=== PATIENT | male | born 1950 | race Caucasian/White ===

== ENCOUNTER 2016-12-16 12:10 | Emergency (ER) | payer MEDICARE, BC ==
[2016-12-16 13:48] VITALS: BP 131/83
--- NOTE | 2016-12-16 14:30 | ED ---
Laceration/Wound HPI - HPI Summary HPI Summary: Patient presents to ED with a 4cm laceration to the dorsum of the right wrist. Denies numbness, tingling, color or temperature changes. Laceration is superficial with minimal blood loss. Laceration occurred by patient accidentally by a knife 2 hours ago. He attempted to use a bandaid and skin glue but states the wound continued to open and bleed. Knife was clean, tetanus UTD. He states he cleaned the wound well s/p injury. He denies blood thinners. Takes medications for HTN. Denies other health problems. - History of Current Complaint Stated Complaint: HAND LAC Time Seen by Provider: 12/16/16 12:29 Hx Obtained From: Patient Mechanism of Injury: Sharp/Blunt Trauma Onset/Duration: Sudden Onset Aggravating: Nothing Alleviating: Nothing Timing: Constant Onset Severity: Mild Current Severity: None Pain Intensity: 0 Pain Scale Used: 0-10 Numeric Associated Signs & Symptoms: Negative Related Hx: Dominant Hand (Right) - Allergy/Home Medications Allergies/Adverse Reactions: Allergies Allergy/AdvReac Type Severity Reaction Status Date / Time No Known Allergies Allergy Verified 08/29/12 00:50 PMH/Surg Hx/FS Hx/Imm Hx Previously Healthy: Yes Endocrine/Hematology History: Reports: Hx Diabetes Cardiovascular History: Reports: Hx Hypertension - Immunization History Hx Pertussis Vaccination: No Immunizations Up to Date: Unable to Obtain/Confirm Infectious Disease History: No Infectious Disease History: Denies: Traveled Outside the [place] in Last 30 Days - Social History Occupation: Unemployed Lives: With Family Alcohol Use: Occasionally Hx Substance Use: No Substance Use Type: Reports: None Hx Tobacco Use: Yes Smoking Status (MU): Light Every Day Tobacco Smoker Review of Systems Constitutional: Negative Eyes: Negative Respiratory: Negative Gastrointestinal: Negative Positive: no symptoms reported, see HPI Musculoskeletal: Negative Positive: Other - 4cm laceration to dorsum of the right wrist Neurological: Negative Psychological: Normal All Other Systems Reviewed And Are Negative: Yes Physical Exam Triage Information Reviewed: Yes Vital Signs On Initial Exam: Initial Vitals Temp Pulse Resp BP Pulse Ox 98.4 F 73 20 133/99 94 12/16/16 12:11 12/16/16 12:11 12/16/16 12:11 12/16/16 12:11 12/16/16 12:11 Vital Signs Reviewed: Yes Appearance: Positive: Well-Appearing, No Pain Distress, Well-Nourished Skin: Positive: Warm, Skin Color Reflects Adequate Perfusion, Other - 4cm laceration to the dorsum of the right wrist Eyes: Positive: Normal, LATRICE, Conjunctiva Clear Neck: Positive: Supple, Nontender, No Lymphadenopathy Respiratory/Lung Sounds: Positive: Clear to Auscultation, Breath Sounds Present Cardiovascular: Positive: Normal, RRR, Pulses are Symmetrical in both Upper and Lower Extremities Musculoskeletal: Positive: Normal, Strength/ROM Intact Neurological: Positive: Sensory/Motor Intact, Alert, Oriented to Person Place, Time Psychiatric: Positive: Normal Procedures - Laceration/Wound Repair 1 Location: upper extremity Description: Linear Anesthesia: Local, 1.0% Betadine Prep?: No Laceration/Wound Explored: clean Closure: Single Layer Suture Type: Prolene Number of Sutures: 6 Layer Closure?: No Sterile Dressing Applied?: No Diagnostics - Vital Signs Vital Signs Temp Pulse Resp BP Pulse Ox 12/16/16 13:30 98.2 F 77 16 131/83 12/16/16 12:13 98.4 F 82 20 133/99 94 12/16/16 12:11 98.4 F 73 20 133/99 94 - Laboratory Lab Statement: Any lab studies that have been ordered have been reviewed, and results considered in the medical decision making process. Laceration Repair Course/Dx - Course Course Of Treatment: Patients wound was cleansed with NS. Patient denies numbness, tingling, color or temperature changes. Bleeding controlled. 4cm laceration to dorsum of the right wrist. 4-0 prolene non-absorbable used for repair. 1% lidocaine. Patient tolerated well. 6 sutures to the right wrist. telfa bandage applied. No abx required. Tetanus UTD. Suture removal in 7 days. Return precautions given. - Differential Dx Differental Diagnoses: Avulsion, Laceration, Puncture Wound, Suture Removal - Clinical Impression Provider Diagnoses: Laceration of wrist Discharge - Discharge Plan Condition: Stable Disposition: HOME Patient Education Materials: Laceration (ED) Referrals: Triston Redd MD [Primary Care Provider] - Additional Instructions: If you develop redness, streaks of red around the wound, swelling, abnormal drainage or you develop a fever - you need to come back to the ED right away. Suture removal in 7 days. Continue to keep covered x 24 hours, then leave open to air. Images - Images Hands: 1 - 4cm laceration - superficial
== END 2016-12-16 13:30 | disposition home or self-care (01) ==
LOC: ED 12:10
DX: S61.511A Laceration without foreign body of right wrist, initial encounter (principal); W26.0XXA Contact with knife, initial encounter; Y93.9 Activity, unspecified; Y92.9 Unspecified place or not applicable; E11.9 Type 2 diabetes mellitus without complications; Z86.79 Personal history of other diseases of the circulatory system
CPT/HCPCS: 12001; 99282

== ENCOUNTER 2017-08-02 10:13 | Inpatient (IN) | payer MEDICARE, BC ==
[2017-08-02 11:06] LABS: ABS Basophils 0.1 10^3/ul (0-0.2); ABS Eosinophils 0.1 10^3/ul (0-0.6); ABS Monocytes 1.2 10^3/ul (0-0.8); ABS Nucleated RBC 0 10^3/ul; Eosinophil % 0.6 % (0-6); Hematocrit 43 % (42-52); Hemoglobin 13.8 g/dl (14.0-18.0); Lymphocyte % 11.2 % (25-47); Mean Corpuscular HGB Conc 32 g/dl (31-36); Mean Corpuscular Hemoglobin 27 pg (27-31); Mean Corpuscular Volume 85 fL (80-94); Mean Platelet Volume 7 um3 (7.4-10.4); Nucleated Red Blood Cells % 0.1; Platelet Count 243 10^3/ul (150-450); Red Blood Count 5.05 10^6/ul (4.0-5.4); Red Cell Distribution Width 17 % (10.5-15); White Blood Count 9.4 10^3/ul (3.5-10.8)
[2017-08-02 11:27] LABS: EGFR Non-African American 116.7 (>60)
--- NOTE | 2017-08-02 11:33 | ED ---
Complex/Multi-Sys Presentation - HPI Summary HPI Summary: Patient presents with bilateral lower extremity edema which started around Laura time and is progressed since then until now - has moved into thighs past 3-4 days which is why he came in today. He denies pain in his lower extremities. He reports associated symptoms of shortness of breath, decreased urinary output since this time. He denies orthopnea, fevers, chills, sweats, skin changes, chest pain, abdominal pain, numbness, tingling, weakness. He denies recent illness and is overall feeling okay. Denies increased shortness of breath with exertion (i.e. going up and down stairs, etc.). He has a history of hypertension which he treats with losartan. Also has a history of diabetes however he does not take medication for this as when he checks his glucose is within normal limits (80s and 90s and low 100s). Does not take an NENA inhibitor. He is followed by the [facility] once a year. He also has a primary care doctor who is not seen in a couple of years. Admits to smoking - he is in the process of quitting - smokes about a half a pack a day. Reports he drinks alcohol "occasionally". Denies any other drug use. Patient notes a history of unilateral lower extremity edema a couple of years ago - this lasted for a few months and was evaluated by primary care doctor for DVT. Patient reports the study was negative and no further treatment was implemented at that time. He reports the swelling went away on its own and has not had any since until now. - History Of Current Complaint Chief Complaint: EDExtremityLower Time Seen by Provider: 08/02/17 10:33 Hx Obtained From: Patient - Allergies/Home Medications Allergies/Adverse Reactions: Allergies Allergy/AdvReac Type Severity Reaction Status Date / Time No Known Allergies Allergy Verified 08/02/17 10:46 Home Medications: Home Medications Ascorbic Acid TAB* [Vitamin C TAB*] 1,000 mg PO DAILY 08/02/17 [History Confirmed 08/02/17] Losartan TAB* [Cozaar TAB*] 50 mg PO DAILY 08/02/17 [History Confirmed 08/02/17] PMH/Surg Hx/FS Hx/Imm Hx Previously Healthy: Yes Endocrine/Hematology History: Reports: Hx Diabetes - no meds - just monitors Denies: Hx Anticoagulant Therapy, Hx Blood Disorders Cardiovascular History: Reports: Hx Hypertension - losartan Respiratory History: Denies: Hx Asthma, Hx Chronic Obstructive Pulmonary Disease (COPD) GI History: Denies: Hx Cirrhosis History: Denies: Hx Acute Renal Failure, Hx Chronic Renal Failure, Hx Renal Disease - Immunization History Immunizations Up to Date: Yes Infectious Disease History: No Infectious Disease History: Denies: Traveled Outside the [place] in Last 30 Days - Family History Known Family History: Positive: None - Social History Occupation: Retired - worked for water [employer] Lives: Alone Alcohol Use: Occasionally Hx Substance Use: No Substance Use Type: Reports: None Hx Tobacco Use: Yes Smoking Status (MU): Current Every Day Smoker Amount Used/How Often: 1/2 PPD - "trying to quit" Review of Systems Constitutional: Negative Negative: Fever, Chills Eyes: Negative ENT: Negative, Other - no jaw pain Negative: Dental Pain Cardiovascular: Negative Negative: Chest Pain Positive: Shortness Of Breath. Negative: Cough Gastrointestinal: Other - eating and drinking well Negative: Abdominal Pain, Vomiting, Diarrhea, Nausea Genitourinary: Other - decreased urine output Musculoskeletal: Negative Skin: Negative Neurological: Negative Psychological: Normal All Other Systems Reviewed And Are Negative: Yes Physical Exam Triage Information Reviewed: Yes Vital Signs On Initial Exam: Initial Vitals Temp Pulse Resp BP Pulse Ox 98.9 F 86 26 171/96 76 08/02/17 10:19 08/02/17 10:19 08/02/17 10:19 08/02/17 10:19 08/02/17 10:19 Vital Signs Reviewed: Yes Appearance: Positive: Well-Appearing, No Pain Distress, Obese Skin: Positive: Warm, Skin Color Reflects Adequate Perfusion, Dry, Other - B/L tibial regions are w/ +2-3 pitting edema - NTTP - Skin here is taught and shiny - no skin breakdown Head/Face: Positive: Normal Head/Face Inspection Eyes: Positive: Normal, EOMI, Conjunctiva Clear - anicteric sclera ENT: Positive: Normal ENT inspection, Hearing grossly normal, Pharynx normal - oral mucosa somewhat moist. Negative: Nasal congestion, Nasal drainage, Muffled voice, Hoarse voice Neck: Positive: Supple Respiratory/Lung Sounds: Positive: Breath Sounds Present - distant, Wheezes - distant expiratory wheezing, Other - distant breath sounds. Negative: Rales, Rhonchi, Stridor Cardiovascular: Positive: RRR, Pulses are Symmetrical in both Upper and Lower Extremities, Leg Edema Left, Leg Edema Right, Other - distant heart sounds, S1, S2 Abdomen Description: Positive: Nontender, Soft, Other: - vast ab girth - body habitus limits exam Bowel Sounds: Positive: Present Musculoskeletal: Positive: Normal, Strength/ROM Intact Neurological: Positive: Normal, Sensory/Motor Intact, Alert, Oriented to Person Place, Time, CN Intact II-III Psychiatric: Positive: Normal - calm, pleasant, cooperative Diagnostics - Vital Signs Vital Signs Temp Pulse Resp BP Pulse Ox 08/02/17 11:00 73 15 149/96 95 08/02/17 10:36 85 14 78 08/02/17 10:35 167/94 08/02/17 10:19 98.9 F 86 26 171/96 76 - Laboratory Lab Results: Lab Results 08/02/17 08/02/17 08/02/17 Range/Units 10:53 10:53 10:53 WBC 9.4 (3.5-10.8) 10^3/ul RBC 5.05 (4.0-5.4) 10^6/ul Hgb 13.8 L (14.0-18.0) g/dl Hct 43 (42-52) % MCV 85 (80-94) fL MCH 27 (27-31) pg MCHC 32 (31-36) g/dl RDW 17 H (10.5-15) % Plt Count 243 (150-450) 10^3/ul MPV 7 L (7.4-10.4) um3 Neut % (Auto) 74.9 (38-83) % Lymph % (Auto) 11.2 L (25-47) % Monona % (Auto) 12.8 H (1-9) % Eos % (Auto) 0.6 (0-6) % Baso % (Auto) 0.5 (0-2) % Absolute Neuts (auto) 7.0 (1.5-7.7) 10^3/ul Absolute Lymphs (auto) 1.0 (1.0-4.8) 10^3/ul Absolute Monos (auto) 1.2 H (0-0.8) 10^3/ul Absolute Eos (auto) 0.1 (0-0.6) 10^3/ul Absolute Basos (auto) 0.1 (0-0.2) 10^3/ul Absolute Nucleated RBC 0 10^3/ul Nucleated RBC % 0.1 Sodium 137 (133-145) mmol/L Potassium 4.2 (3.5-5.0) mmol/L Chloride 99 L (101-111) mmol/L Carbon Dioxide 35 H (22-32) mmol/L Anion Gap 3 (2-11) mmol/L BUN 10 (6-24) mg/dL Creatinine 0.68 (0.67-1.17) mg/dL Est GFR ( Amer) 150.0 (>60) Est GFR (Non-Af Amer) 116.7 (>60) BUN/Creatinine Ratio 14.7 (8-20) Glucose 120 H (70-100) mg/dL Lactic Acid (0.5-2.0) mmol/L Calcium 8.6 (8.6-10.3) mg/dL Total Bilirubin 0.40 (0.2-1.0) mg/dL AST 17 (13-39) U/L ALT 20 (7-52) U/L Alkaline Phosphatase 81 (34-104) U/L Troponin I 0.04 H* (<0.04) ng/mL C-Reactive Protein 10.86 H (< 5.00) mg/L B-Natriuretic Peptide 236 H ( - 100) pg/mL Total Protein 6.2 L (6.4-8.9) g/dL Albumin 3.5 (3.2-5.2) g/dL Globulin 2.7 (2-4) g/dL Albumin/Globulin Ratio 1.3 (1-3) 08/02/17 Range/Units 10:53 WBC (3.5-10.8) 10^3/ul RBC (4.0-5.4) 10^6/ul Hgb (14.0-18.0) g/dl Hct (42-52) % MCV (80-94) fL MCH (27-31) pg MCHC (31-36) g/dl RDW (10.5-15) % Plt Count (150-450) 10^3/ul MPV (7.4-10.4) um3 Neut % (Auto) (38-83) % Lymph % (Auto) (25-47) % Monona % (Auto) (1-9) % Eos % (Auto) (0-6) % Baso % (Auto) (0-2) % Absolute Neuts (auto) (1.5-7.7) 10^3/ul Absolute Lymphs (auto) (1.0-4.8) 10^3/ul Absolute Monos (auto) (0-0.8) 10^3/ul Absolute Eos (auto) (0-0.6) 10^3/ul Absolute Basos (auto) (0-0.2) 10^3/ul Absolute Nucleated RBC 10^3/ul Nucleated RBC % Sodium (133-145) mmol/L Potassium (3.5-5.0) mmol/L Chloride (101-111) mmol/L Carbon Dioxide (22-32) mmol/L Anion Gap (2-11) mmol/L BUN (6-24) mg/dL Creatinine (0.67-1.17) mg/dL Est GFR ( Amer) (>60) Est GFR (Non-Af Amer) (>60) BUN/Creatinine Ratio (8-20) Glucose (70-100) mg/dL Lactic Acid 1.0 (0.5-2.0) mmol/L Calcium (8.6-10.3) mg/dL Total Bilirubin (0.2-1.0) mg/dL AST (13-39) U/L ALT (7-52) U/L Alkaline Phosphatase (34-104) U/L Troponin I (<0.04) ng/mL C-Reactive Protein (< 5.00) mg/L B-Natriuretic Peptide ( - 100) pg/mL Total Protein (6.4-8.9) g/dL Albumin (3.2-5.2) g/dL Globulin (2-4) g/dL Albumin/Globulin Ratio (1-3) Result Diagrams: 08/02/17 10:53 08/02/17 10:53 Lab Statement: Any lab studies that have been ordered have been reviewed, and results considered in the medical decision making process. Re-Evaluation - Re-Evaluation First Eval Change: Unchanged - pt reports no change in sx w/ O2 in place- states he was comfortable before and is still comfortable after Complex Multi-Symp Course/Dx Course Of Treatment: Patient presents with 2 month history of progressive bilateral lower extremity extremity edema and 3-4 day history of associated shortness of breath with decreased urine output. His initial pulse ox was 78% on room air and so he was placed on 3 L O2 via nasal cannula. This increased pulse ox into the 90s. Oxygen was removed by myself for further assessment and after removal for a few minutes patient's oxygen level dropped into the 80s without exertion. O2 was replaced back on the patient at this time. Labs indicate mildly elevated BNP however patient does have an elevated troponin level. Chewable 324 mg aspirin ordered for patient. Nitroglycerin was not necessary at this time nor morphine as patient denies pain. ECG is NSR w/o ST elevations or Q waves. CXR is w/o acute findings however does reveals COPD which correlates w/ clinical picture (smoking, exp wheezing). He currently denies chest pain, jaw pain, arm pain, fatigue, sweating, nausea, vomiting and no recent history of any of the symptoms. Suspect troponin is elevated d/t heart strain from fluid overload. His medical history is significant for hypertension for which she takes losartan. This appears to be stable today. He also reports a diagnosis of diabetes however he does not take medication as his fasting blood sugars are always between 80 and low 100s. No other medical history to report. Spoke with Dr. Reyna on the hospitalist team who agrees to admission. Patient stable condition at time of transition of care.A PE w/u has not been initiated however discussed with admitting provider, Kris Adkins NP - echocardiogram ordered. - Diagnoses Provider Diagnoses: Fluid overload, Elevation of cardiac enzymes - Physician Notifications Discussed Care Of Patient With: Neymar Woodruff Discharge - Discharge Plan Condition: Stable Disposition: ADMITTED TO [facility]
[2017-08-02] MEDS ORDERED: Aspirin Low Dose CHEW TAB* 81 MG PO ONE (11:35)
--- NOTE | 2017-08-02 11:45 | RAD ---
INDICATION: Shortness of breath with edema. COMPARISON: Comparison is made with a prior study from August 29, 2012. TECHNIQUE: Dual-energy PA and lateral views of the chest were obtained. FINDINGS: The heart is within normal limits in size. The lungs are hyperinflated. There is mild prominence of the interstitial markings which are unchanged. No focal infiltrate is seen. No pleural effusion is seen. There are multiple old left posterior rib fractures. IMPRESSION: FINDINGS SUGGESTIVE OF COPD, NO EVIDENCE FOR ACUTE FINDING.
[2017-08-02] MEDS ORDERED: Albuterol 2.5 MG/3 ML NEB.SOL* (0.083%) INH PRN (12:17)
[2017-08-02] MEDS ORDERED: Furosemide IV* 10 MG/ML VIAL (40 MG) IV SLOW PU ONE (12:17)
[2017-08-02] MEDS ORDERED: Ondansetron INJ* 2 MG/ML VIAL IV PRN (12:17)
[2017-08-02] MEDS ORDERED: Acetaminophen TAB* 325 MG PO PRN (12:17)
[2017-08-02] MEDS: Heparin VIAL(*) 5000 UNITS/ML VIAL (FIVE THOUSAND) SUBCUT SCH ×2 (12:36→21:11)
[2017-08-02] MEDS ORDERED: Iodixanol* (CONTRAST) 320 MG/ML 100 ML SDV IV ONE (12:47)
--- NOTE | 2017-08-02 13:49 | RAD ---
HISTORY: Shortness of breath, cough COMPARISONS: Chest x-ray dated August 02, 2017 TECHNIQUE: Multiple contiguous axial CT scans of the chest were obtained after the administration of nonionic intravenous contrast, timed to the pulmonary arterial phase of contrast enhancement.. Coronal and sagittal multiplanar reformations are also submitted for review. FINDINGS: NECK AND THYROID: The lower neck and thyroid are unremarkable. CHEST WALL: There is no lower cervical, axillary, or supraclavicular lymphadenopathy by size criteria. HEART AND PERICARDIUM: The heart is unremarkable. AORTA AND PULMONARY VASCULATURE: There is no pulmonary arterial filling defect to suggest pulmonary embolism. There is no linear filling defect within the aorta to suggest aortic dissection. The main pulmonary artery is larger than the aorta at the same level. MEDIASTINUM: There is no mediastinal lymphadenopathy by size criteria. YANN: There is no hilar lymphadenopathy by size criteria. AIRWAY AND ESOPHAGUS: The airway is unremarkable, without endobronchial filling defect. The esophagus is grossly normal. LUNG PARENCHYMA: There is biapical centrilobular emphysematous change. PLEURA: No pleural abnormalities are noted. UPPER ABDOMEN: There is a 2.6 cm low-attenuation right adrenal nodule measuring 18 Hounsfield units in attenuation. BONES AND SOFT TISSUES: Degenerative changes noted of the spine. There is remote posttraumatic deformity to the left hemithorax.. OTHER: None. IMPRESSION: 1. NO PULMONARY ARTERIAL FILLING DEFECT TO SUGGEST PULMONARY EMBOLISM. 2. ENLARGEMENT OF THE MAIN PULMONARY ARTERY SUGGESTIVE OF PULMONARY ARTERIAL HYPERTENSION. 3. EMPHYSEMA. 4. 2.6 CM LOW-ATTENUATION RIGHT ADRENAL NODULE. IN THE ABSENCE OF HISTORY OF MALIGNANCY, RECOMMEND 12 MONTH FOLLOW-UP EXAMINATION WITH CONTRAST ENHANCED MULTIPHASE ADRENAL PROTOCOL CT OR OR ADRENAL PROTOCOL MRI OF THE ABDOMEN
--- NOTE | 2017-08-02 13:59 | CONSULT ---
Subjective Date of Service: 08/02/17 Interval History: Date of admission and consult: 08/02/2017 Service: Hospitalist PMD: Dr. Redd CC: Dyspnea and edema Reason for consult: Dyspnea and edema HPI Sherman Shaffer is a 66 year old man with a history of HTN and COPD who presents with worsening edema of the lower extremities and abdomen. He had edema of the left leg in 2011 that resolved. He has had progressive edema since [place], more so in the last 3-4 days so he came to the ER for evaluation. He also notices PEREZ, denies orthopnea. No CP, palptitations or syncope. His oxygen saturation levels were in the 70's on room air. Has never been tested for sleep apnea. PAST MEDICAL HISTORY: Significant for: 1. Hypertension. 2. COPD. PAST SURGICAL HISTORY: He has had hernia repair. ALLERGIES TO MEDICATIONS: Include no known drug allergies. FAMILY HISTORY: His mother had diabetes. His father had a history of COPD. SOCIAL HISTORY: He is a half a pack a day smoker for about 50 years. minimal alcohol. Surrogate decision maker is his brother. retired [employer] Medications Active Medications: Acetaminophen (Tylenol Tab*) 650 mg PO Q4H PRN PRN Reason: FEVER/PAIN Albuterol (Ventolin 2.5 Mg/3 Ml Neb.Daria*) 2.5 mg INH Q2H PRN PRN Reason: SOB/WHEEZING Furosemide (Lasix Iv*) 40 mg IV SLOW PU DAILY [facility] Heparin Sodium (Porcine) (Heparin Vial(*)) 5,000 units SUBCUT Q8HR [facility] Last Admin: 08/02/17 12:36 Dose: 5,000 units Losartan Potassium (Cozaar Tab*) 50 mg PO DAILY [facility] Mometasone Furoate/Formoterol Fumar (Dulera 200/5 Mdi*) 1 puff INH BID [facility] PRN Reason: Protocol Ondansetron HCl (Zofran Inj*) 4 mg IV Q6H PRN PRN Reason: NAUSEA Home Medications: Budesonide/Formote 160/4.5(NF) [Symbicort 160/4.5 (NF)] 1 puff INH BID 09/28/15 [History Confirmed 08/02/17] Ascorbic Acid TAB* [Vitamin C TAB*] 1,000 mg PO DAILY 08/02/17 [History Confirmed 08/02/17] Losartan TAB* [Cozaar TAB*] 50 mg PO DAILY 08/02/17 [History Confirmed 08/02/17] Review of Systems - Measurements Intake and Output: Intake and Output Last 24 Hours 07/31/17 08/01/17 08/02/17 08/03/17 06:59 06:59 06:59 06:59 Weight 230 lb - Review of Systems Constitutional Symptoms: Positive: Weight Gain Negative: Fever, Night Sweats Dermatology: Negative: Rash, Skin Lesions HEENT: Negative: Change in Hearing, Vertigo Eyes: Negative: Change in Vision, Double Vision Thyroid: Positive: Weight Gain Negative: Goiter, Thyroid Nodule, Cold Intolerance, Heat Intolerance, Sweatiness, Tremor, Frequent Defecation, Constipation, Palpitations, Primary Hypothyroidism, Primary Hyperthyroidism, Weight Loss Pulmonary: Positive: Cough, Respiratory Distress, Shortness of Breath, COPD, Exercise Intolerance Negative: Hemoptysis, Wheezing, Asthma, Home Oxygen Cardiology: Positive: Shortness of Breath, Swelling of Ankles, Edema Negative: Chest Pain, Palpitations, Peripheral Vascular Dis, Faintness, Syncope, Claudication, Paroxysmal Nocturnal Dyspnea, Orthopnea Gastroenterology: Negative: Abdominal Pain, Nausea, Vomiting, Anorexia, Indigestion, Difficulty Swallowing, Heartburn, Constipation Genital - Urinary: Negative: Dysuria, Hematuria Musculoskeletal: Negative: Joint Pain, Joint Stiffness, Arthritis, Osteoporosis Endocrinology: Positive: Obesity, Pituitary Disease Negative: Thyroid Problems, Adrenal Problems, Gonadal Problems, Family Hx Endocrine Disorders, Polydipsia, Polyuria Hematologic/Lymphatic: Negative: Anemia, Easy Brusing, Hx Leukemia, Hx Lymphoma, Use of Anticoagulant, Use of Antiplatelet Drugs Neurology: Negative: Headaches, Migraines, Change in Vision, Diplopia, Dizziness, Change in Balancing, Change in Coordination, Change in Memory, Numbness\ Paresthesiae, Hx of Stroke\TIA, Hx Seizures Psychiatry: Negative: Depressed Mood, Adhedonia, Sexual Dysfunction, Weight Change Allergic/Immunologic: Negative: Hx Anaphylaxis, Hx Angioedema, Hx HIV, Immunocompromise Review of Systems Statement: All other review of systems negative, unless stated above. Objective Vital Signs: Temp Pulse Resp BP Pulse Ox 98.9 F 87 19 165/85 94 08/02/17 12:43 08/02/17 12:43 08/02/17 12:43 08/02/17 12:43 08/02/17 12:43 Oxygen Devices in Use Now: Nasal Cannula Appearance: nad, pleasant Ears/Nose/Mouth/Throat: Clear Oropharnyx, Mucous Membranes Moist Neck: Trachea Midline, - - uncertain jvp Respiratory: Symmetrical Chest Expansion and Respiratory Effort, - - decreased air entry, no wheeze or rales Cardiovascular: RRR, - - no significant murmur, 3+ pitting edema up to knees Abdominal: - - soft, distended, nont tender Extremities: No Clubbing, Cyanosis Skin: No Rash or Ulcers Neurological: Alert and Oriented x 3 Laboratory Results: 08/02/17 10:53 08/02/17 10:53 Total Bilirubin 0.40 mg/dL (0.2-1.0) 08/02/17 10:53 AST 17 U/L (13-39) 08/02/17 10:53 ALT 20 U/L (7-52) 08/02/17 10:53 Alkaline Phosphatase 81 U/L (34-104) 08/02/17 10:53 B-Natriuretic Peptide 236 pg/mL (-100) H 08/02/17 10:53 Total Protein 6.2 g/dL (6.4-8.9) L 08/02/17 10:53 Albumin 3.5 g/dL (3.2-5.2) 08/02/17 10:53 Globulin 2.7 g/dL (2-4) 08/02/17 10:53 Albumin/Globulin Ratio 1.3 (1-3) 08/02/17 10:53 08/02/17 10:53 Troponin I 0.04 H* abg on 02 pH 7.32/pc02 78/pc02 74 on 02 supplementation, Diagnostic Imaging: CT PE study 08/02/2017: No PE, dilated PA to suggest pulmonary HTN, biapical emphysema, no pleural effusion noted TTE 08/02/2017: Normal LV size, mild LVH, LVEF 55-60%, LA mildly dilated, septal flattening consistent with RV pressure and/or volume overload, RV severely dilated with moderately reduced RV function, RA mod-severe dilated, trace TR with severe estimated elevated PASP 89 mmHg EKG Data: NSR, poor R wave progression, TWI V1/V2 Assessment/Plan Sherman Shaffer is a 66 year old man admitted with symptomatic cor pulmonale/ pulmonary HTN, WHO group III related to underlying lung disease and mixed hypoxic/hypercarbic respiratory failure. Likely small group II component with mildly dilated LA but e/e' on echo is normal suggestive of normal left sided filling pressures. - Continue IV diuresis and change to oral diuretic at discharge - Continue losartan, uptitrate or add additional agents as needed for BP control - Smoking cessation strongly emphasized - Needs more intensive COPD treatment - Likely will need home oxygen - Needs sleep apnea evaluation - Suggest pulmonary consult - RV dysfunction may significantly or improve with adequate treatment of his underlying pulmonary issues - No evidence of a type 1 plaque disruption CO. Would check a lipid panel and start a primary prevention aspirin and statin Thank you for allowing me to participate in the cardiovascular care of this patient. Please do not hesitate to contact me with questions or concerns.
--- NOTE | 2017-08-02 15:42 | ECHO ---
Patient: QUANG STEVENSON [facility] Rec#: [id number] : 1950 Date: 08/02/2017 Age: 66y Height: 177.8 cm / 70.0 in Weight: 104.33 kg / 229.9 lbs Sex: M BSA: 2.22 Room#: [facility] Admit Date#: 08/02/2017 Type: Inpatient Referring: Connie Bansal Reading: Zackary Ferguson DO Finishing Range Feeder: Jazmin Bower RDCS CC: Triston Redd MD Transthoracic Echocardiogram Indication: Shortness of breath, edema BP: 163/90 HR: 104 Rhythm: Tachycardia Findings History: HTN, smoker, DM, past PE, COPD. Technical Comments: The study quality is fair. The study is technically limited due to poor parasternal windows. Completed at 1500. Left Ventricle: The left ventricular chamber size is normal. Mild concentric left ventricular hypertrophy is observed. Global left ventricular wall motion and contractility are within normal limits. There is normal left ventricular systolic function. The estimated ejection fraction is 55-60%. There is septal flattening of the interventricular septum consistent with right ventricular volume or pressure overload. Abnormal left ventricular diastolic function is observed. Abnormal left ventricular diastolic filling is observed, consistent with impaired relaxation. Left Atrium: The left atrium is mildly dilated. Right Ventricle: Moderator Band present. The right ventricle is severely dilated. The right ventricular global systolic function is moderately reduced. Right Atrium: The right atrium is moderate to severely dilated. Aortic Valve: The aortic valve is trileaflet. The aortic valve leaflets are mildly thickened. There is aortic annular calcification.that is mild. There is a trace of aortic regurgitation. There is no evidence of aortic stenosis. Mitral Valve: The mitral valve leaflets are mildly thickened. There is a trace of mitral regurgitation. There is no evidence of mitral stenosis. Tricuspid Valve: The tricuspid valve leaflets are normal. There is trace tricuspid regurgitation. The right ventricular systolic pressure is estimated at 89 mmHg. There is evidence of severe pulmonary hypertension. There is no tricuspid stenosis. Pulmonic Valve: The pulmonic valve appears normal. There is trace to mild pulmonic regurgitation. There is no pulmonic stenosis. Pericardium: There is no significant pericardial effusion. A pericardial fat pad is visualized. Aorta: There is mild dilatation of the ascending aorta. There is no dilatation of the aortic arch. There is mild dilatation of the aortic root. Pulmonary Artery: The main pulmonary artery is not well visualized. Venous: The inferior vena cava is dilated. There is an approximate 50% respiratory change in the inferior vena cava dimension. Conclusions The left ventricular chamber size is normal. Mild concentric left ventricular hypertrophy is observed. Global left ventricular wall motion and contractility are within normal limits. There is normal left ventricular systolic function. The estimated ejection fraction is 55-60%. There is septal flattening of the interventricular septum consistent with right ventricular volume or pressure overload. The left atrium is mildly dilated. The right ventricle is severely dilated. The right ventricular global systolic function is moderately reduced. The right atrium is moderate to severely dilated. There is trace tricuspid regurgitation. There is evidence of severe pulmonary hypertension. The right ventricular systolic pressure is estimated at 89 mmHg. No prior studies available for comparison at time of interpretation. Measurements Name Value Normal Range RVIDd (AP) 2D 3.9 cm (0.9 - 2.6) RVDdMajor (2D) 5.1 cm (2.2 - 4.4) RVAW (2D) 1 cm (0.2 - 0.5) RAd ISD 4CH 6.3 cm (3.4 - 4.9) RA (A4C)W 5.8 cm (2.9 - 4.6) IVSd (2D) 1.3 cm (0.6 - 1) LVPWd (2D) 1.1 cm (0.6 - 1) LVIDd (2D) 4.7 cm (3.6 - 5.4) LVIDs (2D) 3.2 cm - LV FS (2D) 31 % (25 - 45) Aortic Annulus 2.2 cm (1.4 - 2.6) Ao root diameter (2D) 3.8 cm (2.1 - 3.5) Ascending Ao 3.5 cm (2.1 - 3.4) Aortic arch 2.8 cm (1.8 - 3.4) LA dimension (AP) 2D 4.1 cm (2.3 - 3.8) LAd ISD 4CH 5.9 cm (2.9 - 5.3) LA ISD 4CH W 4.6 cm (2.5 - 4.5) Name Value Normal Range LA ESV SP 4CH (A/L) 48 ml - LA ESV SP 2CH (A/L) 83 ml - LA ESV BP (A/L) 64 ml - LA ESV BP (A/L) index 29 ml/m2 - LA ESV SP 4CH (MOD) 44 ml - LA ESV SP 2CH (MOD) 78 ml - Name Value Normal Range MV E-wave Vmax 0.6 m/sec - MV deceleration time 245.98 msec - MV A-wave Vmax 0.91 m/sec - MV E:A ratio 0.66 ratio - LV septal e' Vmax 0.06 m/sec - LV lateral e' Vmax 0.11 m/sec - LV E:e' septal ratio 10 ratio - LV E:e' lateral ratio 5.45 ratio - Name Value Normal Range AV Vmax 1.7 m/sec - AV VTI 31.01 cm - AV peak gradient 12.12 mmHg - AV mean gradient 6.52 mmHg - LVOT Vmax 1.24 m/sec - LVOT VTI 22.92 cm - LVOT peak gradient 6.2 mmHg - LVOT mean gradient 3.28 mmHg - THOM Vmax 0.64 m/sec - Name Value Normal Range TR Vmax 4.5 m/sec - TR peak gradient 81 mmHg - RAP 8 mmHg - RVSP 89 mmHg - IVC diameter 2.3 cm - Name Value Normal Range PV Vmax 1.01 m/sec - PV peak gradient 4.09 mmHg -
--- NOTE | 2017-08-02 15:46 | RAD ---
INDICATION: Lower extremity swelling. COMPARISON: Comparison is made with a prior study from January 11, 2012. TECHNIQUE: Multiple real-time, color flow and Doppler tracings of both lower extremities were obtained. FINDINGS: The common femoral, femoral, profunda femoral and popliteal veins all demonstrate normal compressibility, augmentation with compression and phasic response with respiration. The posterior tibial and peroneal veins demonstrate normal compressibility and augmentation with compression. IMPRESSION: NO EVIDENCE FOR DEEP VENOUS THROMBOSIS.
--- NOTE | 2017-08-02 17:14 | HP ---
CC: Dr. Redd; Dr. Ferguson * HISTORY AND PHYSICAL: DATE OF ADMISSION: 08/02/17. PRIMARY CARE PROVIDER: Dr. Redd. CONSULTING PHYSICIST SOLID EARTH: Dr. Ferguson. ATTENDING PHYSICIAN WHILE IN THE HOSPITAL: Dr. Reyna * (report dictated by Augusta Adkins NP). CHIEF COMPLAINT: 1. Shortness of breath. 2. Weight gain. HISTORY OF PRESENT ILLNESS: Mr. Shaffer is a 66-year-old male patient, who says that over the last week, he has had progressive worsening swelling of the lower extremities, it is worse by causing him pain. He has had this once to twice previously in the past, it has gotten better on its own. He said it happened around [place] time. He does state that he typically eats cheesy dinners and high salted foods. He is also noticed that he is more short of breath particularly with exertion. He denies specifically nocturnal dyspnea or denied having any dyspnea laying flat. He says that he has not had any chest pain or heaviness or tightness, but he says his legs were getting more swollen, his pants do not fit, and he has gained probably about between 10 and 15 pounds of extra weight. He was concerned, he came in to the ER today. He thought may be his body was filling with fluids and was looking for some water pills. He denies having any cough recently. No fevers, or chills. No vomiting or diarrhea. No dysuria or frequency. He says he has not had any change in medication. He was concerned because of the increasing swelling. He came in to the ED, he was evaluated and found to have an indeterminant troponin. There was concern for CHF. So, we were asked to evaluate for admission. PAST MEDICAL HISTORY: Significant for: 1. Hypertension. 2. COPD. PAST SURGICAL HISTORY: He has had hernia repair. MEDICATIONS: Home meds include: 1. Losartan 50 mg daily. 2. Symbicort 1 puff inhaled b.i.d. 3. Vitamin D 1000 units daily. ALLERGIES TO MEDICATIONS: Include no known drug allergies. FAMILY HISTORY: His mother had diabetes. His father had a history of COPD. SOCIAL HISTORY: He is a half a pack a day smoker for about 50 years. He does not drink alcohol. Surrogate decision maker is his brother. REVIEW OF SYSTEMS: There is no documented fever. There is a significant weight change. He denied having any double vision. No ear discharge. He denies having any rhinorrhea. No sore throat. No thyroid enlargement. He denied having any chest pain. There was no orthopnea and no nocturnal dyspnea. There is dyspnea on exertion. There is no abdominal pain. No nausea. No vomiting. No dysuria. No frequency. No seizure. No loss of consciousness. No pruritus and no skin ulcerations. Review of 14-systems was completed, all others are negative. PHYSICAL EXAMINATION GENERAL: At this time, Mr. Shaffer is a 66-year-old male patient. He appears to be well-nourished, well-developed. He does not appear to be in any acute distress. VITAL SIGNS: Blood pressure 163/90, pulse 75, respirations 17, O2 sat 95% on 2 L, and temperature was 98.9. HEENT: Head: Atraumatic, normocephalic. Eyes: Sclerae anicteric and not pale. Throat: Oral mucosa appears to be moist. No oropharyngeal erythema. NECK: Supple. LUNGS: He had wheezing noted throughout bilaterally. Equal diaphragmatic expansion. HEART: Sounds S1, S2. Regular rate and rhythm. No murmur, rubs, or gallops. ABDOMEN: Soft, flat, and nontender. Bowel sounds were present. EXTREMITIES: He has +4 pitting edema bilaterally from the ankle about just below his knees, and pretibial area as well. He has 5/5 strength. NEUROLOGICALLY: He is awake. He is alert. He is oriented x3. His tongue is midline. His metal polisher were equal. He is moving all 4 extremities with 5/5 strength. He had no gross focal deficits. SKIN: His skin was intact. DIAGNOSTIC STUDIES/LAB DATA: Labs today, WBC 9.4, RBC of 5.05, hemoglobin 13.8 , hematocrit of 43, platelet count of 243. Sodium was 137, potassium of 4.2, chloride 99, bicarb of 35, BUN 10, creatinine of 0.68, glucose 120, lactic 1, calcium of 8.6, total bili 0.4, AST 17, ALT 20, alk phos 81. His troponin was 0.04. BNP was 236. Albumin was 3.5. He did have a chest x-ray obtained today, impression. Findings suggestive of COPD. No evidence for acute findings. He did have an EKG, we do not have any previous for comparison. It is unsure of normal sinus rhythm. He does have a left posterior fascicular block noted and he has T-wave inversion in V1 and V2, but I do not have previous EKG for comparison. Old medical records were reviewed. ASSESSMENT AND PLAN: Mr. Shaffer is a 66-year-old male patient coming in to the ED today with shortness of breath, weight gain, concern for possible congestive heart failure. He will be admitted under observation status for: 1. Shortness of breath. I suspect that he does have a component of congestive heart failure. Bilateral lower extremity edema of 4+ pitting edema. He eats a high-salt diet. It it probably right heart failure from the chronic obstructive pulmonary disease, but I am going to touch base with Dr. Ferguson, he will evaluate from cardiology. We will give the patient's 40 Lasix now and 40 IV daily. I am going to get a CTA of the chest just to make sure he does not have PE, but I suspect this is less likely An ultrasound of the extremities to make sure he does not have clots, but I do not think this is the case, I think we are dealing with failure. Food and nutrition consulted as well and we will go ahead and again diurese him, get daily weighs and we will continue to follow him closely and I will cycle his troponins, I suspect troponins probably elevated from a component of demand ischemia from CHF. 2. Hypertension. Again, we will give him IV Lasix now. I will continue his Cozaar. 3. Chronic obstructive pulmonary disease. I will continue on albuterol and his Symbicort. 4. Code status. He wishes to be a DNR, he says he has this paperwork, if not we will fill it out. 5. DVT prophylaxis. He will be placed on heparin subcu. 6. Code status. Again, DNR. 7. Fluids, electrolytes, and nutrition. Heart-healthy diet, and low-sodium diet. TIME SPENT: On admission 60 minutes, greater than half the time was spent face -to- face with the patient obtaining my history and physical; the other half time was spent going over the plan of care with the patient and implementing plan of care. I did discuss the plan of care with my attending, Dr. Reyna, she is in agreement. AUGUSTA ADKINS, MEDICAL REVIEW COORDINATOR [id number]/[facility] #: [id number] LUIS ENRIQUE
[2017-08-02] MEDS: Mometasone/Formoter 200/5 MDI INH SCH (20:03)
[2017-08-02] MEDS: amLODIPine TAB* 5 MG PO SCH ×2 (21:11→22:01)
--- NOTE | 2017-08-02 22:15 | PN ---
Hospitalist Progress Note Date of Service: 08/02/17 Called by nurse to eval patient for AMS. Pt noted to be drowsy will respond to painful stimuli only. Will open eyes. Note 02 4 lnc, turned down. Lung swheezing noted. Attending called to bedside. Reviewed previous gas discussed that it was felt gas was partilay compensated at that point and that felt patient was close to baseline. His mentation was a and o times three with no resp distress. Mental status changed now suspect co2 retention given copd. ABG ordered not co2 94, placing on bipap, discussed transfer with covering freezer tunnel operator and signed out with attending. Pt prior to transfer more awake but not at baseline knows name and place. Will treat copd and right heart failure will need pulm consult.
[2017-08-03 05:38] LABS: Hematocrit 47 % (42-52); Hemoglobin 14.5 g/dl (14.0-18.0); Mean Corpuscular HGB Conc 31 g/dl (31-36); Mean Corpuscular Hemoglobin 27 pg (27-31); Mean Corpuscular Volume 86 fL (80-94); Mean Platelet Volume 7 um3 (7.4-10.4); Platelet Count 253 10^3/ul (150-450); Red Blood Count 5.42 10^6/ul (4.0-5.4); Red Cell Distribution Width 17 % (10.5-15); White Blood Count 9.8 10^3/ul (3.5-10.8)
[2017-08-03 05:40] LABS: ABS Basophils 0.1 10^3/ul (0-0.2); ABS Eosinophils 0.2 10^3/ul (0-0.6); ABS Lymphocytes 1.1 10^3/ul (1.0-4.8); ABS Monocytes 1.7 10^3/ul (0-0.8); ABS Neutrophils 6.9 10^3/ul (1.5-7.7); ABS Nucleated RBC 0 10^3/ul; Eosinophil % 1.6 % (0-6); Lymphocyte % 10.8 % (25-47); Nucleated Red Blood Cells % 0
[2017-08-03] MEDS: Heparin VIAL(*) 5000 UNITS/ML VIAL (FIVE THOUSAND) SUBCUT SCH ×3 (05:49→21:30)
[2017-08-03 05:51] LABS: EGFR Non-African American 112.8 (>60)
[2017-08-03] MEDS: Losartan TAB* 25 MG PO SCH (08:29)
[2017-08-03] MEDS ORDERED: Furosemide IV* 10 MG/ML VIAL (40 MG) IV SLOW PU SCH (09:00)
--- NOTE | 2017-08-03 11:05 | PN ---
Subjective Date of Service: 08/03/17 Interval History: Intermittently lethargic. Hypercarbic respiratory failure on ABGs, transferred to ICU for Bipap last night. Alert this AM, poor historian. Diuresing. Objective Active Medications: Acetaminophen (Tylenol Tab*) 650 mg PO Q4H PRN PRN Reason: FEVER/PAIN Albuterol (Ventolin 2.5 Mg/3 Ml Neb.Daria*) 2.5 mg INH Q2H PRN PRN Reason: SOB/WHEEZING Furosemide (Lasix Iv*) 40 mg IV SLOW PU DAILY [facility] Last Admin: 08/03/17 08:29 Dose: 40 mg Furosemide (Lasix Iv*) 40 mg IV 0800,1700 [facility] Heparin Sodium (Porcine) (Heparin Vial(*)) 5,000 units SUBCUT Q8HR [facility] Last Admin: 08/03/17 05:49 Dose: 5,000 units Losartan Potassium (Cozaar Tab*) 50 mg PO DAILY [facility] Last Admin: 08/03/17 08:29 Dose: 50 mg Mometasone Furoate/Formoterol Fumar (Dulera 200/5 Mdi*) 1 puff INH BID [facility] PRN Reason: Protocol Last Admin: 08/02/17 20:03 Dose: 1 puff Ondansetron HCl (Zofran Inj*) 4 mg IV Q6H PRN PRN Reason: NAUSEA Vital Signs - 8 hr 08/03/17 08/03/17 08/03/17 03:00 03:05 03:30 Temperature Pulse Rate 70 80 Respiratory 18 17 20 Rate Blood Pressure 124/79 134/98 (mmHg) O2 Sat by Pulse 91 93 Oximetry 08/03/17 08/03/17 08/03/17 03:43 03:55 04:00 Temperature 97.8 F Pulse Rate 70 Respiratory 20 21 Rate Blood Pressure 120/73 (mmHg) O2 Sat by Pulse 91 Oximetry 08/03/17 08/03/17 08/03/17 04:30 05:00 05:15 Temperature Pulse Rate 68 77 Respiratory 16 19 18 Rate Blood Pressure 139/81 147/83 (mmHg) O2 Sat by Pulse 92 93 Oximetry 08/03/17 08/03/17 08/03/17 05:30 06:00 06:03 Temperature Pulse Rate 73 70 Respiratory 24 20 22 Rate Blood Pressure 124/78 128/76 (mmHg) O2 Sat by Pulse 91 91 Oximetry 08/03/17 08/03/17 08/03/17 06:30 06:50 07:00 Temperature Pulse Rate 76 Respiratory 18 17 18 Rate Blood Pressure 138/85 146/92 (mmHg) O2 Sat by Pulse 94 Oximetry 08/03/17 08/03/17 08/03/17 07:01 07:30 07:40 Temperature 98.8 F Pulse Rate 69 80 Respiratory 20 15 Rate Blood Pressure 147/91 (mmHg) O2 Sat by Pulse 94 95 Oximetry 08/03/17 08/03/17 08/03/17 07:43 08:00 08:30 Temperature Pulse Rate 70 75 Respiratory 15 17 17 Rate Blood Pressure 124/76 143/88 (mmHg) O2 Sat by Pulse 93 96 Oximetry 08/03/17 08/03/17 08/03/17 09:00 09:30 10:00 Temperature Pulse Rate 76 76 79 Respiratory 20 24 19 Rate Blood Pressure 132/81 134/82 139/92 (mmHg) O2 Sat by Pulse 92 94 90 Oximetry Oxygen Devices in Use Now: BiPAP Appearance: NAD, Eyes: No Scleral Icterus, PERRLA Ears/Nose/Mouth/Throat: NL Teeth, Lips, Gums, Mucous Membranes Moist Neck: NL Appearance and Movements; NL JVP, Trachea Midline Respiratory: Symmetrical Chest Expansion and Respiratory Effort, - - no wheezing or rales or rhonchi. modestly diminshed breath sounds b/l Cardiovascular: NL Sounds; No Murmurs; No JVD, RRR Abdominal: NL Sounds; No Tenderness; No Distention, No Hepatosplenomegaly Extremities: - - 2+ b/l Skin: No Rash or Ulcers, No Nodules or Sclerosis Neurological: Alert and Oriented x 3, NL Sensation, NL Muscle Strength and Tone Nutrition: Taking PO's Result Diagrams: 08/03/17 05:22 08/03/17 05:22 Additional Lab and Data: Laboratory Results - last 24 hr 08/02/17 08/02/17 08/02/17 10:53 10:53 10:53 WBC 9.4 RBC 5.05 Hgb 13.8 L Hct 43 MCV 85 MCH 27 MCHC 32 RDW 17 H Plt Count 243 MPV 7 L Neut % (Auto) 74.9 Lymph % (Auto) 11.2 L [place] % (Auto) 12.8 H Eos % (Auto) 0.6 Baso % (Auto) 0.5 Absolute Neuts (auto) 7.0 Absolute Lymphs (auto) 1.0 Absolute Monos (auto) 1.2 H Absolute Eos (auto) 0.1 Absolute Basos (auto) 0.1 Absolute Nucleated RBC 0 Nucleated RBC % 0.1 Patient Temperature ABG pH ABG pH (Temp Correct) ABG pCO2 ABG pCO2 (Temp Corrct ABG pO2 ABG pO2 (Temp Correct ABG HCO3 ABG O2 Saturation ABG Base Excess Respiration Rate O2 Delivery Device Ventilator Type Vent Mode FiO2 Inspiratory Time PEEP Pressure Support Pressure Control EPAP IPAP BiPAP Sodium 137 Potassium 4.2 Chloride 99 L Carbon Dioxide 35 H Anion Gap 3 BUN 10 Creatinine 0.68 Est GFR ( Amer) 150.0 Est GFR (Non-Af Amer) 116.7 BUN/Creatinine Ratio 14.7 Glucose 120 H Lactic Acid Calcium 8.6 Total Bilirubin 0.40 AST 17 ALT 20 Alkaline Phosphatase 81 Troponin I 0.04 H* C-Reactive Protein 10.86 H B-Natriuretic Peptide 236 H Total Protein 6.2 L Albumin 3.5 Globulin 2.7 Albumin/Globulin Ratio 1.3 08/02/17 08/02/17 08/02/17 10:53 14:07 14:32 WBC RBC Hgb Hct MCV MCH MCHC RDW Plt Count MPV Neut % (Auto) Lymph % (Auto) [place] % (Auto) Eos % (Auto) Baso % (Auto) Absolute Neuts (auto) Absolute Lymphs (auto) Absolute Monos (auto) Absolute Eos (auto) Absolute Basos (auto) Absolute Nucleated RBC Nucleated RBC % Patient Temperature Not Reportable ABG pH 7.32 L ABG pH (Temp Correct) Not Reportable ABG pCO2 78 H* ABG pCO2 (Temp Corrct Not Reportable ABG pO2 74 L ABG pO2 (Temp Correct Not Reportable ABG HCO3 32.8 H ABG O2 Saturation 95.8 ABG Base Excess 10.4 H Respiration Rate Not Reportable O2 Delivery Device N/c Ventilator Type Not Reportable Vent Mode Not Reportable FiO2 Not Reportable Inspiratory Time Not Reportable PEEP Not Reportable Pressure Support Not Reportable Pressure Control Not Reportable EPAP Not Reportable IPAP Not Reportable BiPAP Not Reportable Sodium Potassium Chloride Carbon Dioxide Anion Gap BUN Creatinine Est GFR ( Amer) Est GFR (Non-Af Amer) BUN/Creatinine Ratio Glucose Lactic Acid 1.0 Calcium Total Bilirubin AST ALT Alkaline Phosphatase Troponin I 0.01 C-Reactive Protein B-Natriuretic Peptide Total Protein Albumin Globulin Albumin/Globulin Ratio 08/02/17 08/02/17 08/02/17 16:31 21:45 23:00 WBC RBC Hgb Hct MCV MCH MCHC RDW Plt Count MPV Neut % (Auto) Lymph % (Auto) [place] % (Auto) Eos % (Auto) Baso % (Auto) Absolute Neuts (auto) Absolute Lymphs (auto) Absolute Monos (auto) Absolute Eos (auto) Absolute Basos (auto) Absolute Nucleated RBC Nucleated RBC % Patient Temperature Not Reportable Not Reportable ABG pH 7.27 L 7.29 L ABG pH (Temp Correct) Not Reportable Not Reportable ABG pCO2 94 H* 90 H* ABG pCO2 (Temp Corrct Not Reportable Not Reportable ABG pO2 60 L 122 H ABG pO2 (Temp Correct Not Reportable Not Reportable ABG HCO3 33.4 H 34.3 H ABG O2 Saturation 91.6 L 98.7 H ABG Base Excess 11.3 H 12.2 H Respiration Rate Not Reportable Not Reportable O2 Delivery Device nasal cannula bipap Ventilator Type Not Reportable Not Reportable Vent Mode Not Reportable Not Reportable FiO2 29 50 Inspiratory Time Not Reportable .9 PEEP Not Reportable Not Reportable Pressure Support Not Reportable Not Reportable Pressure Control Not Reportable Not Reportable EPAP Not Reportable 8 IPAP Not Reportable 14 BiPAP Not Reportable Not Reportable Sodium Potassium Chloride Carbon Dioxide Anion Gap BUN Creatinine Est GFR ( Amer) Est GFR (Non-Af Amer) BUN/Creatinine Ratio Glucose Lactic Acid Calcium Total Bilirubin AST ALT Alkaline Phosphatase Troponin I 0.01 C-Reactive Protein B-Natriuretic Peptide Total Protein Albumin Globulin Albumin/Globulin Ratio 08/03/17 08/03/17 08/03/17 03:52 05:22 05:22 WBC 9.8 RBC 5.42 H Hgb 14.5 Hct 47 MCV 86 MCH 27 MCHC 31 RDW 17 H Plt Count 253 MPV 7 L Neut % (Auto) 69.8 Lymph % (Auto) 10.8 L [place] % (Auto) 17.2 H Eos % (Auto) 1.6 Baso % (Auto) 0.6 Absolute Neuts (auto) 6.9 Absolute Lymphs (auto) 1.1 Absolute Monos (auto) 1.7 H Absolute Eos (auto) 0.2 Absolute Basos (auto) 0.1 Absolute Nucleated RBC 0 Nucleated RBC % 0 Patient Temperature ABG pH 7.36 ABG pH (Temp Correct) ABG pCO2 77 H* ABG pCO2 (Temp Corrct ABG pO2 75 L ABG pO2 (Temp Correct ABG HCO3 35.6 H ABG O2 Saturation 96.6 ABG Base Excess 13.9 H Respiration Rate O2 Delivery Device Ventilator Type Vent Mode FiO2 Inspiratory Time PEEP Pressure Support Pressure Control EPAP IPAP BiPAP Sodium 138 Potassium 4.4 Chloride 95 L Carbon Dioxide 40 H Anion Gap 3 BUN 8 Creatinine 0.70 Est GFR ( Amer) 145.1 Est GFR (Non-Af Amer) 112.8 BUN/Creatinine Ratio 11.4 Glucose 95 Lactic Acid Calcium 8.6 Total Bilirubin AST ALT Alkaline Phosphatase Troponin I C-Reactive Protein B-Natriuretic Peptide Total Protein Albumin Globulin Albumin/Globulin Ratio Assess/Plan/Problems-Billing Assessment: 66 yo male PMH COPD, HTN p/w with progressive lower extremity edema x 6 weeks; PEREZ x few days. Severe pulmonary hypertension (89mmHg), RV severely dilated; Cor pulmonale. Acute hypoxic anc hypercarbic respiratory failure, required Bipap in ICU. Diuresing. - Patient Problems (1) Cor pulmonale Current Visit: Yes Status: Acute Code(s): I27.81 - COR PULMONALE (CHRONIC) SNOMED Code(s): 02294704 Comment: severe RV dilation. RVSP 89 mmHg. Pulmonology consulted. likely 2/2 severe COPD s/p CTA with no PE appreciate cardiology recs. increased diuresis to 40mg IV BID. daily weights, strict io. likely will need RHC. May need PDE-5 inhibition, endothelin recepetor antagonists, proastcyclins or CCB. (2) COPD (chronic obstructive pulmonary disease) Current Visit: Yes Status: Acute Code(s): J44.9 - CHRONIC OBSTRUCTIVE PULMONARY DISEASE, UNSPECIFIED SNOMED Code(s): 02191085 Comment: dulera duonebs q2h prn. (3) Pulmonary hypertension Current Visit: Yes Status: Acute Code(s): I27.20 - PULMONARY HYPERTENSION, UNSPECIFIED SNOMED Code(s): 12878067 Comment: see cor pulmonale plan above. (4) HTN (hypertension) Current Visit: Yes Status: Acute Code(s): I10 - ESSENTIAL (PRIMARY) HYPERTENSION SNOMED Code(s): 47443262 Comment: losartan 50mg daily. (5) Altered mental status Current Visit: Yes Status: Acute Code(s): R41.82 - ALTERED MENTAL STATUS, UNSPECIFIED SNOMED Code(s): 988970909 Comment: likely 2/2 hypercapnia. Improved after bipap. (6) Current smoker Current Visit: Yes Status: Acute Code(s): F17.200 - NICOTINE DEPENDENCE, UNSPECIFIED, UNCOMPLICATED SNOMED Code(s): 59881774 Comment: does not want nicotine patch or inhalers currently. smoking cessation counseling. Status and Disposition: medicine inpatient. May be able to downgrade to floor later today. Attending: Dago Alaniz
--- NOTE | 2017-08-03 11:24 | PN ---
Subjective Date of Service: 08/03/17 Interval History: 08/03/2017 f/u cor pulmonale had c02 narcosis from 02 supplementation required transfer to ICU and bipap better now, on nasal canula and fully oriented Good diuresis, not all quantitated, edema much improved scattered wheeze on exam no cp or dyspnea at rest telemetry: no arrhyhtmias Medications Active Medications: Acetaminophen (Tylenol Tab*) 650 mg PO Q4H PRN PRN Reason: FEVER/PAIN Albuterol (Ventolin 2.5 Mg/3 Ml Neb.Daria*) 2.5 mg INH Q2H PRN PRN Reason: SOB/WHEEZING Furosemide (Lasix Iv*) 40 mg IV SLOW PU DAILY [facility] Last Admin: 08/03/17 08:29 Dose: 40 mg Furosemide (Lasix Iv*) 40 mg IV 0800,1700 [facility] Heparin Sodium (Porcine) (Heparin Vial(*)) 5,000 units SUBCUT Q8HR [facility] Last Admin: 08/03/17 05:49 Dose: 5,000 units Losartan Potassium (Cozaar Tab*) 50 mg PO DAILY [facility] Last Admin: 08/03/17 08:29 Dose: 50 mg Mometasone Furoate/Formoterol Fumar (Dulera 200/5 Mdi*) 1 puff INH BID [facility] PRN Reason: Protocol Last Admin: 08/02/17 20:03 Dose: 1 puff Ondansetron HCl (Zofran Inj*) 4 mg IV Q6H PRN PRN Reason: NAUSEA Objective Vital Signs: Temp Pulse Resp BP Pulse Ox 98.8 F 79 19 139/92 90 08/03/17 07:40 08/03/17 10:00 08/03/17 10:00 08/03/17 10:00 08/03/17 10:00 Oxygen Devices in Use Now: BiPAP Appearance: nad, pleasant Ears/Nose/Mouth/Throat: Clear Oropharnyx, Mucous Membranes Moist Neck: Trachea Midline, - - uncertain jvp Respiratory: Symmetrical Chest Expansion and Respiratory Effort, - - scattered wheeze mid to end expiratory throughout lung spencer Cardiovascular: RRR, - - no significant murmur, 1+ pitting edema improved Abdominal: - - soft, less distended, non tender Extremities: No Clubbing, Cyanosis Skin: No Rash or Ulcers Neurological: Alert and Oriented x 3 Laboratory Results: 08/03/17 05:22 08/03/17 05:22 Total Bilirubin 0.40 mg/dL (0.2-1.0) 08/02/17 10:53 AST 17 U/L (13-39) 08/02/17 10:53 ALT 20 U/L (7-52) 08/02/17 10:53 Alkaline Phosphatase 81 U/L (34-104) 08/02/17 10:53 B-Natriuretic Peptide 236 pg/mL (-100) H 08/02/17 10:53 Total Protein 6.2 g/dL (6.4-8.9) L 08/02/17 10:53 Albumin 3.5 g/dL (3.2-5.2) 08/02/17 10:53 Globulin 2.7 g/dL (2-4) 08/02/17 10:53 Albumin/Globulin Ratio 1.3 (1-3) 08/02/17 10:53 08/02/17 08/02/17 14:07 16:31 Troponin I 0.01 0.01 Arterial Blood Gas Results Patient Temperature Not Reportable 08/02/17 23:00 ABG pH 7.36 (7.35-7.45) 08/03/17 03:52 ABG pH (Temp Correct) Not Reportable 08/02/17 23:00 ABG pCO2 77 mmHg (35-45) H* 08/03/17 03:52 ABG pCO2 (Temp Corrct Not Reportable 08/02/17 23:00 ABG pO2 75 mmHg (80-100) L 08/03/17 03:52 ABG pO2 (Temp Correct Not Reportable 08/02/17 23:00 ABG HCO3 35.6 mmol/L (19-31) H 08/03/17 03:52 ABG O2 Saturation 96.6 % (95-98) 08/03/17 03:52 ABG Base Excess 13.9 (-2.0-2.0) H 08/03/17 03:52 Respiration Rate Not Reportable 08/02/17 23:00 O2 Delivery Device bipap 08/02/17 23:00 Ventilator Type Not Reportable 08/02/17 23:00 Vent Mode Not Reportable 08/02/17 23:00 FiO2 50 08/02/17 23:00 Inspiratory Time .9 08/02/17 23:00 PEEP Not Reportable 08/02/17 23:00 Pressure Support Not Reportable 08/02/17 23:00 Pressure Control Not Reportable 08/02/17 23:00 EPAP 8 08/02/17 23:00 IPAP 14 08/02/17 23:00 BiPAP Not Reportable 08/02/17 23:00 Diagnostic Imaging: CT PE study 08/02/2017: No PE, dilated PA to suggest pulmonary HTN, biapical emphysema, no pleural effusion noted TTE 08/02/2017: Normal LV size, mild LVH, LVEF 55-60%, LA mildly dilated, septal flattening consistent with RV pressure and/or volume overload, RV severely dilated with moderately reduced RV function, RA mod-severe dilated, trace TR with severe estimated elevated PASP 89 mmHg EKG Data: admission ekg NSR, poor R wave progression, TWI V1/V2 Assessment/Plan Sherman Shaffer is a 66 year old man admitted with symptomatic cor pulmonale/ pulmonary HTN, WHO group III related to underlying lung disease and mixed hypoxic/hypercarbic respiratory failure. - Continue IV diuresis and change to oral diuretic at discharge - Continue losartan, uptitrate or add additional agents as needed for BP control - Smoking cessation strongly emphasized - Continue COPD treatment - Needs sleep apnea evaluation - Pulmonary consult pending - RV dysfunction may significantly improve with adequate treatment of his underlying pulmonary issues - No evidence of a type 1 plaque disruption LA. Would check a lipid panel and start a primary prevention aspirin and statin Thank you for allowing me to participate in the cardiovascular care of this patient. Please do not hesitate to contact me with questions or concerns.
[2017-08-03] MEDS: Mometasone/Formoter 200/5 MDI INH SCH ×2 (11:36→19:45)
[2017-08-03] MEDS: Furosemide IV* 10 MG/ML VIAL (40 MG) IV SCH (18:16)
[2017-08-04] MEDS: Heparin VIAL(*) 5000 UNITS/ML VIAL (FIVE THOUSAND) SUBCUT SCH ×3 (06:19→21:31)
[2017-08-04] MEDS: Losartan TAB* 25 MG PO SCH (07:26)
[2017-08-04] MEDS: Furosemide IV* 10 MG/ML VIAL (40 MG) IV SCH ×2 (07:26→16:23)
[2017-08-04] MEDS: Mometasone/Formoter 200/5 MDI INH SCH ×2 (08:31→19:57)
[2017-08-04 08:44] LABS: EGFR Non-African American 101.1 (>60)
[2017-08-04] MEDS ORDERED: Magnesium Sulfate 2 GM IV* 2 GM/50 ML BAG IVPB ONE (11:00)
--- NOTE | 2017-08-04 15:51 | PN ---
Subjective Date of Service: 08/04/17 Interval History: Transferred to floor last evening. Slept well. On 4L. Weight dropping, edema improving. Objective Active Medications: Acetaminophen (Tylenol Tab*) 650 mg PO Q4H PRN PRN Reason: FEVER/PAIN Albuterol (Ventolin 2.5 Mg/3 Ml Neb.Daria*) 2.5 mg INH Q2H PRN PRN Reason: SOB/WHEEZING Furosemide (Lasix Iv*) 40 mg IV 0800,1700 [facility] Last Admin: 08/04/17 07:26 Dose: 40 mg Heparin Sodium (Porcine) (Heparin Vial(*)) 5,000 units SUBCUT Q8HR [facility] Last Admin: 08/04/17 13:15 Dose: 5,000 units Losartan Potassium (Cozaar Tab*) 50 mg PO DAILY [facility] Last Admin: 08/04/17 07:26 Dose: 50 mg Mometasone Furoate/Formoterol Fumar (Dulera 200/5 Mdi*) 1 puff INH BID [facility] PRN Reason: Protocol Last Admin: 08/04/17 08:31 Dose: 1 puff Ondansetron HCl (Zofran Inj*) 4 mg IV Q6H PRN PRN Reason: NAUSEA Vital Signs - 8 hr 08/04/17 08/04/17 08/04/17 08:01 08:07 08:34 Temperature 98.7 F Pulse Rate 86 75 Respiratory 18 18 16 Rate Blood Pressure 128/66 (mmHg) O2 Sat by Pulse 90 92 Oximetry 08/04/17 08/04/17 08:40 11:09 Temperature 98.6 F Pulse Rate 73 Respiratory 18 Rate Blood Pressure 123/76 (mmHg) O2 Sat by Pulse 94 96 Oximetry Oxygen Devices in Use Now: Nasal Cannula Appearance: NAD, moving in bed well. Ears/Nose/Mouth/Throat: NL Teeth, Lips, Gums, Mucous Membranes Moist Respiratory: - - reduced breath sounds diffusely. no rhonchi or wheezing. Cardiovascular: NL Sounds; No Murmurs; No JVD, RRR Abdominal: NL Sounds; No Tenderness; No Distention, No Hepatosplenomegaly Extremities: - - 1-2+ edema Skin: No Rash or Ulcers, No Nodules or Sclerosis Neurological: Alert and Oriented x 3, NL Sensation, NL Muscle Strength and Tone Nutrition: Taking PO's Result Diagrams: 08/03/17 05:22 08/04/17 08:11 Additional Lab and Data: Laboratory Results - last 24 hr 08/04/17 08:11 Sodium 134 Potassium 4.3 Chloride 91 L Carbon Dioxide 39 H Anion Gap 4 BUN 14 Creatinine 0.77 Est GFR ( Amer) 130.0 Est GFR (Non-Af Amer) 101.1 BUN/Creatinine Ratio 18.2 Glucose 111 H Calcium 9.0 Magnesium 1.7 L Assess/Plan/Problems-Billing Assessment: 66 yo male PMH COPD, HTN p/w with progressive lower extremity edema x 6 weeks; PEREZ x few days. Severe pulmonary hypertension (89mmHg), RV severely dilated; Cor pulmonale. Acute hypoxic and hypercarbic respiratory failure. Initially required Bipap in ICU but down to 4L on floor after diurese so far. Pulmonology consulted. - Patient Problems (1) Cor pulmonale Current Visit: Yes Status: Acute Code(s): I27.81 - COR PULMONALE (CHRONIC) SNOMED Code(s): 64961071 Comment: severe RV dilation. RVSP 89 mmHg. Pulmonology consulted. likely 2/2 severe COPD s/p CTA with no PE appreciate cardiology recs. continue diuresis 40mg IV BID. daily weights, strict io. Fluid restrict 1.8L daily likely will need RHC. May need PDE-5 inhibition, endothelin recepetor antagonists, proastcyclins or CCB. (2) COPD (chronic obstructive pulmonary disease) Current Visit: Yes Status: Acute Code(s): J44.9 - CHRONIC OBSTRUCTIVE PULMONARY DISEASE, UNSPECIFIED SNOMED Code(s): 57032117 Comment: jo chambers q2h prn. add prednisone 40mg daily. add spiriva (3) Pulmonary hypertension Current Visit: Yes Status: Acute Code(s): I27.20 - PULMONARY HYPERTENSION, UNSPECIFIED SNOMED Code(s): 12951793 Comment: see cor pulmonale plan above. (4) HTN (hypertension) Current Visit: Yes Status: Acute Code(s): I10 - ESSENTIAL (PRIMARY) HYPERTENSION SNOMED Code(s): 79153542 Comment: losartan 50mg daily. (5) Altered mental status Current Visit: Yes Status: Acute Code(s): R41.82 - ALTERED MENTAL STATUS, UNSPECIFIED SNOMED Code(s): 661708199 Comment: resolved. likely 2/2 hypercapnia. Improved after bipap and more diuresis. (6) Current smoker Current Visit: Yes Status: Acute Code(s): F17.200 - NICOTINE DEPENDENCE, UNSPECIFIED, UNCOMPLICATED SNOMED Code(s): 22691829 Comment: does not want nicotine patch or inhalers currently. smoking cessation counseling. Status and Disposition: medicine inpatient. Needs pulm consult, may need RHC. Attending: Dago Alaniz
--- NOTE | 2017-08-04 15:52 | PN ---
Subjective Date of Service: 08/04/17 Interval History: 08/03/2017 f/u cor pulmonale Patient does not recall explanation of why he has edema dog is currently boarded at [facility] still with edema no dyspnea at rest or chest pain on nasal canula BP now normal with diuresis scattered wheeze on exam Medications Active Medications: Acetaminophen (Tylenol Tab*) 650 mg PO Q4H PRN PRN Reason: FEVER/PAIN Albuterol (Ventolin 2.5 Mg/3 Ml Neb.Daria*) 2.5 mg INH Q2H PRN PRN Reason: SOB/WHEEZING Furosemide (Lasix Iv*) 40 mg IV 0800,1700 [facility] Last Admin: 08/04/17 07:26 Dose: 40 mg Heparin Sodium (Porcine) (Heparin Vial(*)) 5,000 units SUBCUT Q8HR [facility] Last Admin: 08/04/17 13:15 Dose: 5,000 units Losartan Potassium (Cozaar Tab*) 50 mg PO DAILY [facility] Last Admin: 08/04/17 07:26 Dose: 50 mg Mometasone Furoate/Formoterol Fumar (Dulera 200/5 Mdi*) 1 puff INH BID [facility] PRN Reason: Protocol Last Admin: 08/04/17 08:31 Dose: 1 puff Ondansetron HCl (Zofran Inj*) 4 mg IV Q6H PRN PRN Reason: NAUSEA Objective Vital Signs: Temp Pulse Resp BP Pulse Ox 98.6 F 73 18 123/76 96 08/04/17 11:09 08/04/17 11:09 08/04/17 11:09 08/04/17 11:09 08/04/17 11:09 Oxygen Devices in Use Now: Nasal Cannula Appearance: nad, pleasant Ears/Nose/Mouth/Throat: Clear Oropharnyx, Mucous Membranes Moist Neck: Trachea Midline, - - uncertain jvp Respiratory: Symmetrical Chest Expansion and Respiratory Effort, - - scattered wheeze end expiratory throughout lung spencer Cardiovascular: RRR, - - no significant murmur, 1+ pitting edema Abdominal: - - soft, mildly distended, non tender Extremities: No Clubbing, Cyanosis Skin: No Rash or Ulcers Neurological: Alert and Oriented x 3 Laboratory Results: 08/03/17 05:22 08/04/17 08:11 Total Bilirubin 0.40 mg/dL (0.2-1.0) 08/02/17 10:53 AST 17 U/L (13-39) 08/02/17 10:53 ALT 20 U/L (7-52) 08/02/17 10:53 Alkaline Phosphatase 81 U/L (34-104) 08/02/17 10:53 B-Natriuretic Peptide 236 pg/mL (-100) H 08/02/17 10:53 Total Protein 6.2 g/dL (6.4-8.9) L 08/02/17 10:53 Albumin 3.5 g/dL (3.2-5.2) 08/02/17 10:53 Globulin 2.7 g/dL (2-4) 08/02/17 10:53 Albumin/Globulin Ratio 1.3 (1-3) 08/02/17 10:53 08/02/17 08/02/17 14:07 16:31 Troponin I 0.01 0.01 Diagnostic Imaging: CT PE study 08/02/2017: No PE, dilated PA to suggest pulmonary HTN, biapical emphysema, no pleural effusion noted TTE 08/02/2017: Normal LV size, mild LVH, LVEF 55-60%, LA mildly dilated, septal flattening consistent with RV pressure and/or volume overload, RV severely dilated with moderately reduced RV function, RA mod-severe dilated, trace TR with severe estimated elevated PASP 89 mmHg EKG Data: admission ekg NSR, poor R wave progression, TWI V1/V2 Assessment/Plan Sherman Shaffer is a 66 year old man admitted with symptomatic cor pulmonale/ pulmonary HTN, WHO group III related to underlying lung disease and mixed hypoxic/hypercarbic respiratory failure. - Continue IV diuresis and change to oral diuretic at discharge, replace electrolytes as needed - Continue losartan, BP controlled - Smoking cessation strongly emphasized - Continue COPD treatment - Needs sleep apnea evaluation - Pulmonary consult pending - RV dysfunction may significantly improve with adequate treatment of his underlying pulmonary issues - No evidence of a type 1 plaque disruption [place]. Would check a lipid panel and start a primary prevention aspirin and statin Thank you for allowing me to participate in the cardiovascular care of this patient. Please do not hesitate to contact me with questions or concerns.
[2017-08-04] MEDS ORDERED: Spiriva Inhaler DEVICE* 1 EACH DEVICE SCH (16:00)
[2017-08-04] MEDS: predniSONE TAB* 20 MG PO SCH (16:23)
[2017-08-04] MEDS: Tiotropium CAP.INH* CAP.INH/18 MCG (USE ORDER SET !) INH SCH (16:24)
[2017-08-05] MEDS: Heparin VIAL(*) 5000 UNITS/ML VIAL (FIVE THOUSAND) SUBCUT SCH ×3 (06:11→20:30)
[2017-08-05 07:00] LABS: ABS Basophils 0 10^3/ul (0-0.2); ABS Eosinophils 0 10^3/ul (0-0.6); ABS Lymphocytes 0.6 10^3/ul (1.0-4.8); ABS Monocytes 0.8 10^3/ul (0-0.8); ABS Nucleated RBC 0 10^3/ul; Eosinophil % 0 % (0-6); Hematocrit 48 % (42-52); Hemoglobin 15.5 g/dl (14.0-18.0); Lymphocyte % 6.2 % (25-47); Mean Corpuscular HGB Conc 32 g/dl (31-36); Mean Corpuscular Hemoglobin 27 pg (27-31); Mean Corpuscular Volume 85 fL (80-94); Mean Platelet Volume 7 um3 (7.4-10.4); Nucleated Red Blood Cells % 0; Platelet Count 275 10^3/ul (150-450); Red Blood Count 5.67 10^6/ul (4.0-5.4); Red Cell Distribution Width 18 % (10.5-15); White Blood Count 9.5 10^3/ul (3.5-10.8)
[2017-08-05 07:06] LABS: EGFR Non-African American 92.7 (>60)
[2017-08-05] MEDS: predniSONE TAB* 20 MG PO SCH (07:54)
[2017-08-05] MEDS: Losartan TAB* 25 MG PO SCH (07:54)
[2017-08-05] MEDS: Furosemide IV* 10 MG/ML VIAL (40 MG) IV SCH ×2 (07:54→17:31)
[2017-08-05] MEDS: Tiotropium CAP.INH* CAP.INH/18 MCG (USE ORDER SET !) INH SCH (08:25)
[2017-08-05] MEDS: Mometasone/Formoter 200/5 MDI INH SCH ×2 (08:25→21:17)
--- NOTE | 2017-08-05 10:26 | PN ---
Subjective Date of Service: 08/05/17 Interval History: Still on 5-6L. No BM since admission. No chest pain/tightness or other complaint. Did not save 3 or 4 of his urine voids. forgetful with cardiology yesterday. Objective Active Medications: Acetaminophen (Tylenol Tab*) 650 mg PO Q4H PRN PRN Reason: FEVER/PAIN Albuterol (Ventolin 2.5 Mg/3 Ml Neb.Daria*) 2.5 mg INH Q2H PRN PRN Reason: SOB/WHEEZING Aspirin (Aspirin Low Dose Tab*) 81 mg PO DAILY [facility] Atorvastatin Calcium (Lipitor*) 10 mg PO 1700 [facility] Device (Tiotropium Inhaler Device*) 1 each .SEE ORDER .USE w/ SPIRIVA CAPS [facility] Docusate Sodium (Colace Cap*) 100 mg PO DAILY [facility] Furosemide (Lasix Iv*) 40 mg IV 0800,1700 [facility] Last Admin: 08/05/17 07:54 Dose: 40 mg Heparin Sodium (Porcine) (Heparin Vial(*)) 5,000 units SUBCUT Q8HR [facility] Last Admin: 08/05/17 06:11 Dose: 5,000 units Losartan Potassium (Cozaar Tab*) 50 mg PO DAILY [facility] Last Admin: 08/05/17 07:54 Dose: 50 mg Mometasone Furoate/Formoterol Fumar (Dulera 200/5 Mdi*) 1 puff INH BID [facility] PRN Reason: Protocol Last Admin: 08/05/17 08:25 Dose: 1 puff Ondansetron HCl (Zofran Inj*) 4 mg IV Q6H PRN PRN Reason: NAUSEA Polyethylene Glycol/Electrolytes (Miralax*) 17 gm PO DAILY [facility] Prednisone (Deltasone Tab*) 40 mg PO DAILY [facility] Last Admin: 08/05/17 07:54 Dose: 40 mg Tiotropium [place] (Spiriva Cap.Inh*) 1 cap INH DAILY [facility] Last Admin: 08/05/17 08:25 Dose: 1 cap Vital Signs - 8 hr 08/05/17 08/05/17 08/05/17 03:53 04:01 07:43 Temperature 98.0 F 97.8 F Pulse Rate 90 85 Respiratory 17 16 Rate Blood Pressure 125/50 115/93 (mmHg) O2 Sat by Pulse 74 91 100 Oximetry 08/05/17 08/05/17 08:04 08:28 Temperature Pulse Rate 84 Respiratory 20 14 Rate Blood Pressure (mmHg) O2 Sat by Pulse 93 Oximetry Oxygen Devices in Use Now: Nasal Cannula Appearance: NAD Eyes: No Scleral Icterus, PERRLA Ears/Nose/Mouth/Throat: NL Teeth, Lips, Gums, Mucous Membranes Moist Neck: NL Appearance and Movements; NL JVP, Trachea Midline Respiratory: - - decreased breath sounds b/l. no wheezing, rales or rhonchi. Cardiovascular: NL Sounds; No Murmurs; No JVD, RRR Abdominal: NL Sounds; No Tenderness; No Distention, No Hepatosplenomegaly Extremities: - - 1+ edema b/l Skin: No Rash or Ulcers, No Nodules or Sclerosis Neurological: Alert and Oriented x 3, NL Muscle Strength and Tone Nutrition: Taking PO's Result Diagrams: 08/05/17 06:05 08/05/17 06:05 Additional Lab and Data: Laboratory Results - last 24 hr 08/05/17 08/05/17 06:05 06:05 WBC 9.5 RBC 5.67 H Hgb 15.5 Hct 48 MCV 85 MCH 27 MCHC 32 RDW 18 H Plt Count 275 MPV 7 L Neut % (Auto) 85.2 H Lymph % (Auto) 6.2 L [place] % (Auto) 8.5 Eos % (Auto) 0 Baso % (Auto) 0.1 Absolute Neuts (auto) 8.0 H Absolute Lymphs (auto) 0.6 L Absolute Monos (auto) 0.8 Absolute Eos (auto) 0 Absolute Basos (auto) 0 Absolute Nucleated RBC 0 Nucleated RBC % 0 Sodium 137 Potassium 5.2 H Chloride 93 L Carbon Dioxide 40 H Anion Gap 4 BUN 14 Creatinine 0.83 Est GFR ( Amer) 119.2 Est GFR (Non-Af Amer) 92.7 BUN/Creatinine Ratio 16.9 Glucose 139 H Calcium 9.3 Triglycerides 86 Cholesterol 123 LDL Cholesterol 51 HDL Cholesterol 54.6 Assess/Plan/Problems-Billing Assessment: 66 yo male PMH COPD, HTN p/w with progressive lower extremity edema x 6 weeks; PEREZ x few days. Severe pulmonary hypertension (89mmHg), RV severely dilated; Cor pulmonale. Acute hypoxic and hypercarbic respiratory failure. Initially required Bipap in ICU but down to 5-6L on floor after diurese so far. Pulmonology consulted. - Patient Problems (1) Cor pulmonale Current Visit: Yes Status: Acute Code(s): I27.81 - COR PULMONALE (CHRONIC) SNOMED Code(s): 54456580 Comment: severe RV dilation. RVSP 89 mmHg. Pulmonology consulted. Follow-up recs likely 2/2 severe COPD s/p CTA with no PE appreciate cardiology recs. continue diuresis 40mg IV BID. daily weights, strict io. Fluid restrict 1.8L daily likely will need RHC. May need PDE-5 inhibition, endothelin recepetor antagonists, proastcyclins or CCB. (2) COPD (chronic obstructive pulmonary disease) Current Visit: Yes Status: Acute Code(s): J44.9 - CHRONIC OBSTRUCTIVE PULMONARY DISEASE, UNSPECIFIED SNOMED Code(s): 41590656 Comment: dulera duonebs q2h prn. prednisone 40mg daily. spiriva add azithromycin 250mg po daily. (3) Pulmonary hypertension Current Visit: Yes Status: Acute Code(s): I27.20 - PULMONARY HYPERTENSION, UNSPECIFIED SNOMED Code(s): 92885129 Comment: see cor pulmonale plan above. (4) HTN (hypertension) Current Visit: Yes Status: Acute Code(s): I10 - ESSENTIAL (PRIMARY) HYPERTENSION SNOMED Code(s): 36442388 Comment: losartan 50mg daily. (5) Altered mental status Current Visit: Yes Status: Acute Code(s): R41.82 - ALTERED MENTAL STATUS, UNSPECIFIED SNOMED Code(s): 891317006 Comment: resolved. likely 2/2 hypercapnia. Improved after bipap and more diuresis. (6) Current smoker Current Visit: Yes Status: Acute Code(s): F17.200 - NICOTINE DEPENDENCE, UNSPECIFIED, UNCOMPLICATED SNOMED Code(s): 35133155 Comment: does not want nicotine patch or inhalers currently. smoking cessation counseling. Status and Disposition: medicine inpatient. Needs pulm consult, may need RHC. Attending: Dago Alaniz
[2017-08-05] MEDS: Docusate CAP* 100 MG PO SCH (11:44)
[2017-08-05] MEDS: Polyethylene Glycol 3350* 17 GM PACKET PO SCH (11:44)
[2017-08-05] MEDS: Aspirin Low Dose CHEW TAB* 81 MG PO SCH (11:44)
[2017-08-05] MEDS: Azithromycin TAB* 250 MG PO SCH (11:44)
[2017-08-05] MEDS ORDERED: Atorvastatin* 10 MG TAB PO SCH (17:00)
--- NOTE | 2017-08-06 00:22 | CONS ---
PULMONARY CONSULTATION REPORT: DATE OF CONSULTATION: 08/05/17 CONSULTATION REQUESTED BY: Dr. Alaniz. REASON FOR CONSULTATION: Evaluation of pulmonary hypertension. HISTORY OF PRESENT ILLNESS: The patient is a 66-year-old obese male, current smoker with history of COPD, hypertension, who presents for evaluation of lower extremity swelling and shortness of breath. The patient reports chronic shortness of breath that has been getting worse since [place] time. The patient also reports noting lower extremity swelling since that time. He typically eats cheesy dinners and high salt foods and noted more shortness of breath with exertion. The patient denied paroxysmal nocturnal dyspnea or orthopnea. The patient denies chest pain, palpitations, dizziness, loss of appetite. The patient reports 10 to 15 pound weight gain since [place] time. The patient reports episode of lower extremity swelling in the past, Dopplers were negative. He has not been on diuretics at home. The patient is with significant smoking history, continues to smoke. The patient denies recurrent bronchitis. The patient reports mild intermittent cough. The patient denies significant dyspnea on exertion. 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 The patient had CT of the chest performed in the emergency room. I have personally reviewed CT scan of the chest. The patient with no evidence of filling defects in pulmonary arteries. The patient noted to have evidence of pulmonary hypertension with dilated pulmonary arteries. The patient noted to have centrilobular emphysematous changes predominantly at the apices. The patient also with 2.6 cm low attenuation right adrenal nodule. No significant mediastinal or hilar adenopathy was noted. The patient had echocardiogram performed on admission, which was suggestive of normal EF at 55% to 60% with septal flattening of interventricular septum consistent with right ventricular volume or pressure overload with estimated RVSP of 89 and with evidence of severe pulmonary hypertension. The right atrium is moderate to severely dilated with a trace tricuspid regurgitation, right ventricle is severely dilated with decreased function, left atrium is mildly dilated, mild concentric LV hypertrophy was noted. The patient had significant hypoxemic and hypercapnic respiratory failure , had altered mental status while on the floor and was transferred to ICU. He responded to BiPAP therapy. ABG at that time was suggestive of respiratory acidosis. The patient was also noted to have O2 source turned off at that time with significant wheezing. He was seen by Cardiology. Given significant pulmonary hypertension, pulmonary consultation was recommended. The patient reports improvement in shortness of breath. Lower extremity swelling also improved with diuretics. His O2 requirements have come down. He is requiring 5 L currently. PAST MEDICAL HISTORY: 1. COPD. 2. Hypertension. PAST SURGICAL HISTORY: Hernia repair. MEDICATIONS: 1. Losartan 50 mg daily. 2. Symbicort 1 puff b.i.d. 3. Vitamin D 1000 units daily. ALLERGIES TO MEDICATIONS: No known drug allergies. FAMILY HISTORY: Mother has diabetes, father has COPD. SOCIAL HISTORY: Half a pack a day smoker for about 50 years, does not drink alcohol. REVIEW OF SYSTEMS: All 14 systems reviewed and as per HPI. PHYSICAL EXAM: The patient in bed, in no apparent distress. Vital Signs: Temperature 97.8, pulse 85 beats per minute, respiratory rate 16 per minute, O2 sat 93% on 5 L, blood pressure 115/93. HEENT: Pupils equal and reactive to light, mucous membranes are moist. Lungs: Diminished air entry bilaterally. Wheeze present bilaterally. Cardiovascular: S1, S2 present, regular. Abdomen : Obese, nontender, nondistended. Bowel sounds present. Extremities: Normal range of motion. Trace edema bilaterally. Pulses 2+ bilaterally. Skin: No rash or bruises. Neurologic: No focal deficits. Alert, awake, oriented x3. DIAGNOSTIC STUDIES/LAB DATA: WBC count 9.5, hemoglobin 15.5, hematocrit 48, platelet count 275. Blood gas analysis shows pH 7.36, pCO2 of 77, pO2 75, bicarb 35.6. Sodium 137, potassium 5.2, chloride 93, bicarb 40, BUN 14, creatinine 0.83. Chest x-ray and CT chest as described above in HPI. Echo as described above in HPI. IMPRESSION AND RECOMMENDATIONS: 66-year-old male with significant smoking history, current smoker, admitted with lower extremity swelling, found to have acute on chronic hypoxic and hypercapnic respiratory failure secondary to COPD, CHF and with evidence of severe pulmonary hypertension. 1. Fluid overload secondary to heart failure in the setting of recent intake of more sodium in diet. 2. COPD with evidence of pulmonary hypertension and concern for cor pulmonale. 3. Severe pulmonary hypertension, likely worsening pressures in the setting of chronic pulmonary hypertension due to acute hypoxemia. 4. Hypoxemic and hypercapnic respiratory failure. 5. Acute COPD exacerbation. 6. Tobacco abuse. The patient with evidence of significant COPD, also suspicion for obstructive sleep apnea, likely resulting in pulmonary hypertension. The patient had acute COPD exacerbation and possible CHF exacerbation resulting in acute on chronic hypoxemic and hypercapnic respiratory failure resulting in worsening of the pulmonary pressures. The patient improved significantly with diuretics. I agree with current management for COPD. Continue titrating oxygen to keep oxygen saturations around 92%. The patient will need repeat echocardiogram in about 6 to 8 weeks. If still continues to have significantly elevated pulmonary hypertension in spite of improvement in hypoxemia on repeat echocardiogram, he will need right heart catheterization. No suspicious air space opacities on CT chest. No concern for chronic thromboembolism Smoking cessation education was reinforced. The patient is willing to cut down on the number of cigarettes. He will need PFTs as outpatient. He will need sleep study as outpatient. The patient would qualify for noninvasive ventilation due to hypercapnic respiratory failure. Will try BiPAP at night and the patient might benefit from BiPAP at home. Thank you for allowing me to participate in the care of your patient. Will follow up with you. [id number]/[facility] #: [id number] LUIS ENRIQUE
[2017-08-06] MEDS: Heparin VIAL(*) 5000 UNITS/ML VIAL (FIVE THOUSAND) SUBCUT SCH ×2 (06:15→14:24)
[2017-08-06 07:09] LABS: EGFR Non-African American 102.6 (>60)
[2017-08-06] MEDS: Furosemide IV* 10 MG/ML VIAL (40 MG) IV SCH (08:12)
[2017-08-06] MEDS: Polyethylene Glycol 3350* 17 GM PACKET PO SCH (08:12)
[2017-08-06] MEDS: Aspirin Low Dose CHEW TAB* 81 MG PO SCH (08:13)
[2017-08-06] MEDS: Azithromycin TAB* 250 MG PO SCH (08:13)
[2017-08-06] MEDS: Docusate CAP* 100 MG PO SCH (08:13)
[2017-08-06] MEDS: predniSONE TAB* 20 MG PO SCH (08:13)
[2017-08-06] MEDS: Losartan TAB* 25 MG PO SCH (08:13)
[2017-08-06] MEDS: Mometasone/Formoter 200/5 MDI INH SCH (08:55)
[2017-08-06] MEDS: Tiotropium CAP.INH* CAP.INH/18 MCG (USE ORDER SET !) INH SCH (08:56)
[2017-08-06 11:54] VITALS: BP 108/66
--- NOTE | 2017-08-06 13:00 | PN ---
Progress Note - Progress Note Date of Service: 08/06/17 - Pulm f/u note Note: Pt seen and examined at bedside. Pt reports improvement in breathing. Reprots that he couldnot tolerate BiPAP last night for more than 2 hrs due to discomfort with humidity setting and condensation from mask. Active Medications Generic Name Dose Route Start Last Admin Trade Name Freq PRN Reason Stop Dose Admin Acetaminophen 650 mg 08/02/17 12:17 Tylenol Tab* PO Q4H PRN FEVER/PAIN Albuterol 2.5 mg 08/02/17 12:17 Ventolin 2.5 Mg/3 Ml Neb.Daria* INH Q2H PRN SOB/WHEEZING Aspirin 81 mg 08/05/17 10:00 08/06/17 08:13 Aspirin Low Dose Tab* PO 81 mg DAILY [facility] Administration Atorvastatin Calcium 10 mg 08/05/17 17:00 08/05/17 17:31 Lipitor* PO 10 mg 1700 [facility] Administration Azithromycin 250 mg 08/05/17 11:00 08/06/17 08:13 Zithromax Tab* PO 250 mg DAILY [facility] Administration Device 1 each 08/04/17 16:00 Tiotropium Inhaler Device* .SEE ORDER .USE w/ SPIRIVA CAPS [facility] Docusate Sodium 100 mg 08/05/17 10:00 08/06/17 08:13 Colace Cap* PO 100 mg DAILY [facility] Administration Furosemide 40 mg 08/03/17 17:00 08/06/17 08:12 Lasix Iv* IV 40 mg 0800,1700 [facility] Administration Heparin Sodium (Porcine) 5,000 units 08/02/17 14:00 08/06/17 06:15 Heparin Vial(*) SUBCUT 5,000 units Q8HR [facility] Administration Losartan Potassium 50 mg 08/03/17 09:00 08/06/17 08:13 Cozaar Tab* PO 50 mg DAILY [facility] Administration Mometasone Furoate/Formoterol Fumar 1 puff 08/02/17 21:00 08/06/17 08:55 Dulera 200/5 Mdi* INH 1 puff BID [facility] Administration Protocol Ondansetron HCl 4 mg 08/02/17 12:17 Zofran Inj* IV Q6H PRN NAUSEA Polyethylene Glycol/Electrolytes 17 gm 08/05/17 10:00 08/06/17 08:12 Miralax* PO 17 gm DAILY [facility] Administration Prednisone 40 mg 08/04/17 16:00 08/06/17 08:13 Deltasone Tab* PO 40 mg DAILY [facility] Administration Tiotropium [place] 1 cap 08/04/17 16:00 08/06/17 08:56 Spiriva Cap.Inh* INH 1 cap DAILY [facility] Administration Vital Signs Temp Pulse Resp BP Pulse Ox 98.5 F 78 16 108/66 93 08/06/17 11:38 08/06/17 11:38 08/06/17 11:38 08/06/17 11:38 08/06/17 11:38 O/E: Pt in NAD, sitting up in bed HEENT: PERRLA, No JVD Lungs: Diminished air entry at bases, scaterred wheeze + b/l CVS: S1, S2 +, regular Abd: Obese, BS+ Ext: No edema Neuro: No focal defecits Skin: No rash Laboratory Results - last 24 hr 08/06/17 06:41 Sodium 137 Potassium 3.9 Chloride 94 L Carbon Dioxide 40 H Anion Gap 3 BUN 18 Creatinine 0.76 Est GFR ( Amer) 132.0 Est GFR (Non-Af Amer) 102.6 BUN/Creatinine Ratio 23.7 H Glucose 104 H Calcium 8.9 66 y o m with signficant smoking history a/w worsening SOB, AMS found to have acute on chronic resp failure, improved with BiPAP, was found to have signficant LE swelling that improved with diuretic, found to have severe pulm HTN Pt also with acute COPD exacerbation Resp status improving Still has signficantly elevated bicarb suggestive of chronic process with compensation Will benefit from NIPPV given signficant COPD, hypercapnia Will have pt on BiPAP 20/04 Long acting bronchodilators for COPD Still needing FiO2 of 4.5L O2, is hypoxic at rest and with exertion Will need f/u ECHO in 6 weeks Will need PFTs, sleep study as out pt Will f/u in 2 weeks
--- NOTE | 2017-08-07 04:37 | DS ---
DISCHARGE SUMMARY: DATE OF ADMISSION: 08/02/17 DATE OF DISCHARGE: 08/06/17 ADMITTING PROVIDER: Kris Adkins NP PRIMARY CARE PHYSICIAN: Dr. Redd. CHIEF COMPLAINT: Shortness of breath, lower extremity edema with weight gain. PRINCIPAL DIAGNOSES: 1. Severe chronic obstructive pulmonary disease. 2. Cor pulmonale. 3. Severe pulmonary hypertension. HISTORY OF PRESENT ILLNESS AND HOSPITAL COURSE: Mr. Shaffer is a 66-year-old male with past medical history of hypertension, COPD, current smoker, who presented with progressive worsening swelling in his lower extremities, have been causing him pain, this had happened twice in the past, but had gotten better on its own. These previous incidences are around [place] time. He has been eating cheesy dinners with high salt food content. He is complaining of more shortness of breath with exertion, but denied any specific nocturnal dyspnea or orthopnea. No chest pain or tightness. However, his pants no longer fit and has gained about 10 to 15 pounds of extra weight with legs very swollen. He attested to a half-pack current smoking habit. There was concern on admission that he had undiagnosed congestive heart failure, found to have 4+ pitting edema. His BNP was 236. Dr. Zackary Ferguson of Cardiology was consulted and the patient was started on 40 mg of IV Lasix daily. He had a CT angiogram of the chest to rule out pulmonary embolism, which showed no evidence of pulmonary arterial defect to suggest pulmonary embolism, but an enlargement of the main pulmonary artery to suggest of a pulmonary arterial hypertension, also evidence of emphysema and 2.6 cm low attenuation right adrenal nodule. Recommended 12 month followup. His transthoracic echocardiogram showed an ejection fraction of 55% to 60%. There was septal flattening of the interventricular septum consistent with right ventricular volume or pressure overload. Abnormal left ventricular diastolic dysfunction was observed. The right ventricular systolic pressure was 89 mmHg consistent with evidence of severe pulmonary hypertension. There was trace tricuspid regurgitation. Right atrium was moderate to severely dilated. Right ventricle is significantly dilated. Left atrium mildly dilated. Later at 10 p.m. on the day of admission , the patient was noted to have altered mental status, responding to only painful stimuli. He had been on 4 L nasal cannula. A blood gas was obtained, which showed hypercapnic respiratory failure with pCO2 of 94. He was transferred to ICU for BiPAP initiation. His mentation improved by hospital day #2. Of note, he had initial ABG with pCO2 of 78 and repeat after initiation BiPAP shows 77 at 4 a.m. His mentation improved. He is able to be weaned off BiPAP at the morning and was transferred back up to the floor. His initial weight on admission was 100.1 kg. He had effective diuresis with 40 mg IV Lasix b.i.d. and on date of discharge, weight was 93.[address] Tubbs, Pulmonology was able to evaluate the patient and recommended repeat echocardiogram in 6 weeks to document continued evidence of pulmonary hypertension before decision whether or not a right heart catheterization would be needed. He needed pulmonary function test, sleep study test. He was recommended to begin nocturnal BiPAP, which he did not tolerate the night prior to discharge settings of 14 to 10. Attempts were made to arrange for the patient to have BiPAP upon discharge at settings of 12/8; however, he had not met medicaid requirements of overnight sleep study and per case management denied, but hopefully we will be able to be arranged upon followup with Dr. Tubbs. He still requires significant oxygen despite diuresis, which resolved his lower extremity edema to a large degree, still had trace down from 4+ on discharge. He was continued on steroids given new inhalers, aspirin, statin, Chantix to help stop smoking. He will need to follow up with Dr. Tubbs in [address] Redd on 08/14/17. 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 The patient was still requiring 4.5 L of oxygen at rest and on ambulation to maintain sats at 92 %. DISCHARGE MEDICATIONS: Include: 1. Albuterol HFA inhaler (Ventolin) 1 puff inhaled q.6 hours p.r.n. (new). 2. Ascorbic acid 1000 mg p.o. daily (old). 3. Aspirin 81 mg daily (new). 4. Atorvastatin 10 mg daily (new). 5. Symbicort 1 puff inhaled b.i.d. (new). 6. Losartan 50 mg p.o. daily (old). 7. Prednisone 40 mg daily to be taken 40 mg x4 days, 20 mg x4 days, then stop ( new). 8. Spiriva (tiotropium) 1 capsule inhaled daily (new). 9. Torsemide 40 mg p.o. daily (new). 10. Chantix (varenicline) pack 0.5 mg x11 days, then 1 mg x42 days (new). DISCHARGE DIET: Heart healthy. DISCHARGE ACTIVITY LEVEL: No restrictions, but now requiring chronic home O2 use. Recommendation for BiPAP once qualifies. FOLLOWUP: Please follow up with Dr. Tubbs within [address] Triston Redd on 08/14/17 at 1:30 p.m. TIME SPENT: Forty-five minutes. [id number]/[facility] #: [id number] LUIS ENRIQUE
== END 2017-08-06 15:40 | disposition home or self-care (01) | DRG 314 ==
LOC: ED 10:13 → MEDTELE 12:20 → ICU 22:28 → MED 08-03 18:57
PROVIDERS: ADMIT Internal Medicine; ATTEND Internal Medicine
PROC: 5A09457 Assistance with Respiratory Ventilation, 24-96 Consecutive Hours, Continuous Positive Airway Pressure (ICD-10-PCS; principal; 2017-08-02)
DX: I27.81 Cor pulmonale (chronic) (principal); J96.22 Acute and chronic respiratory failure with hypercapnia; J96.21 Acute and chronic respiratory failure with hypoxia; J44.1 Chronic obstructive pulmonary disease with (acute) exacerbation; I27.20 Pulmonary hypertension, unspecified; F17.210 Nicotine dependence, cigarettes, uncomplicated; I10 Essential (primary) hypertension; I44.5 Left posterior fascicular block; Z79.899 Other long term (current) drug therapy; Z83.3 Family history of diabetes mellitus; Z82.5 Family history of asthma and other chronic lower respiratory diseases
CPT/HCPCS: 36415; 36600; 71046; 71275; 80048; 80053; 80061; 82803; 83605; 83735; 83880; 84484; 85025; 86140; 93005; 93306; 93970; 94640; 94760; A9270-GY; J1644; J1940; J3475; J7512; Q9967

== ENCOUNTER 2018-02-18 09:36 | Emergency (ER) | payer MEDICARE, BC ==
--- OUTSIDE RECORDS SUMMARY | 2018-02-18 10:18 | XMS REPORT ---
:1950 External Reference #:[id number] Author Organization [employer] Address [address] [place] [address] [address] [place] [address] Phone [phone] Care Team Providers Name Role Phone Triston Redd MD Primary Care Physician Unavailable Payers Type Date Identification Numbers Payment Provider Subscriber Medicare Primary Policy Number: [id number] Medicare Sherman Shaffer PayID: [id number] [address] [place] [address] [employer] Part B Policy Number: [id number] BS Facets Sherman Shaffer PayID: [id number] [address] [address] [place] [address] Problems Date Description Provider Status Onset: 08/19/2017 Chronic obstructive lung disease Adrienne Villa, N.P. Active Onset: 08/19/2017 Pulmonary hypertension Adrienne Villa, N.P. Active Onset: 08/19/2017 Essential hypertension Adrienne Villa, N.P. Active Onset: 08/19/2017 Tobacco user Adrienne Villa, N.P. Active Family History Date Family Member(s) Problem(s) Comments Father Chronic Obstructive Pulmonary Disease (COPD) Mother Diabetes Social History Type Date Description Comments Marital Status Single Lives With Alone Occupation Retired Cigarette Use Former Cigarette Smoker Smoked 1 ppd for 40 years ETOH Use Occasionally consumes alcohol Smoking Patient is a former smoker Quit 2017 Recreational Drug Use Denies Drug Use Daily Caffeine Consumes on average 64oz of soda per day Allergies, Adverse Reactions, Alerts Date Description Reaction Status Severity Comments 08/19/2017 NKDA active Medications Medication Date Status Form Strength Qnty SIG Indications Ordering Provider Nebulizer 11/14/ Active Device 1unit 1 unit J44.9 [place] 2018 s nebulization Suly, with MD albuterol every 6 hours and as needed Full Face Mask 10/17/ Active Pls provide G47.33 [place] 2018 pt with full Suly, face mask to MD fit and necessary pap supplies Oxygen 10/01/ Active Misc 1unit please use o2 R09.02 [place] 2018 s at 4l/min Suly, during MD exertion, and 3L/min at night with cpap. pls provide pt with portable o2 concentrator Bevespi 08/19/ Active Aerosol 9-4.8mcg/ 17.7g 2 puffs J44.9 Adrienne S. Aerosphere 2018 Act m inhalation Foster, twice daily. N.P. Albuterol 08/19/ Active Nebulizer 1.25mg/3M 225ml use nebulizer J44.9 [place] Sulfate 2018 L tx inhaled Suly, every 6hr as MD needed for shortness of breath Nebulizer 08/19/ Active Kit 1 inhalation J44.9 [place] Kit/Tubing/Rocio 2018 every 6 hours Suly, thpiece for shortness MD of breath Aspirin / Active Tablets DR 81mg 1 by mouth Unknown 0000 every day Losartan / Active Tablets 50mg 1 by mouth Unknown Potassium 0000 every day Torsemide / Active Tablets 20mg take 2 Unknown 0000 tablets by mouth once daily Ascorbic Acid / Hx Tablets 1000mg 1 by mouth Unknown 0000 - every day 2017 Atorvastatin / Hx Tablets 10mg 1 by mouth Unknown Calcium 0000 - every day 2017 Vital Signs Date Vital Result Comment 01/21/2018 Height 70 inches 5'10" Weight 209.25 lb Heart Rate 74 /min BP Systolic Sitting 100 mmHg Lue large cuff BP Diastolic Sitting 68 mmHg Lue large cuff Respiratory Rate 16 /min O2 % BldC Oximetry 93 % On Ra BMI (Body Mass Index) 30.0 kg/m2 11/14/2017 Height 70 inches 5'10" Weight 208.00 lb Heart Rate 68 /min BP Systolic Sitting 122 mmHg BP Diastolic Sitting 80 mmHg Respiratory Rate 14 /min O2 % BldC Oximetry 93 % BMI (Body Mass Index) 29.8 kg/m2 10/01/2017 Height 70 inches 5'10" Weight 213.00 lb Heart Rate 72 /min BP Systolic Sitting 108 mmHg BP Diastolic Sitting 70 mmHg Respiratory Rate 14 /min O2 % BldC Oximetry 95 % BMI (Body Mass Index) 30.6 kg/m2 08/19/2017 Height 70 inches 5'10" Weight 212.25 lb Heart Rate 88 /min BP Systolic Sitting 122 mmHg BP Diastolic Sitting 84 mmHg Respiratory Rate 14 /min O2 % BldC Oximetry 94 % on 4 L BMI (Body Mass Index) 30.5 kg/m2 Neck Circumference in inches 17.25 Results Description No Information Procedures Date CPT Code Description Status 10/17/2017 34547 ECHO Transthoracic, Real-Time 2D With Doppler And Color Completed Flow 10/17/2017 40940 ECHO Transthoracic, Real-Time 2D With Doppler And Color Completed Flow 09/12/2017 66976 Plethysmography Determination Lung Volumes & Per Airway Completed Resist 09/12/2017 84170 Pulmonary Function><Bronchodil Completed 09/04/2017 48707 Polysomnography Sleep Staging 4+ Parameters W/Cpap Completed 08/02/2017 45353 ECHO Transthorasic Realtime 2D W Doppler & Color Flow Completed Hosp Encounters Type Date Location Provider CPT E/M Dx Office Visit 01/21/2018 [facility] [place] [address] J44.9 11:30a [facility] G47.33 Office Visit 11/14/2017 1:45p [facility] [place] [address] J44.9 [facility] G47.33 R09.02 I27.20 Office Visit 10/01/2017 1:45p [facility] [place] [address] J44.9 [facility] G47.33 I27.20 R09.02 Office Visit 08/19/2017 10:00a [facility] Adrienne Villa, [address]654 I27.20 [facility] N[facility] F17.201 J44.9 R06.83 Office Visit 08/06/2017 11:10a [facility],[place] [address] J44.9 Hospitalists I10 I27.81 Office Visit 08/06/2017 7:57a [facility] [place] [address] I27.20 [facility] J44.9 J96.21 Office Visit 08/05/2017 11:08a [facility],[place] [address] J44.9 Hospitalists I10 I27.81 Office Visit 08/05/2017 11:03a [facility] [place] [address] J96.21 [facility] J96.22 F17.210 J44.1 I50.9 I27.20 Office Visit 08/04/2017 11:07a [facility], [place] [address] J44.9 Hospitalists I10 I27.81 Office Visit 08/04/2017 2:35p [employer] [facility], [address] I27.20 [facility] FAC J96.01 J96.02 Office Visit 08/03/2017 11:05a [facility], [place] [address] J44.9 Hospitalists I10 I27.81 Office Visit 08/03/2017 12:13p [employer] [facility] [address] I27.20 [facility] FAC J96.01 J96.02 Office Visit 08/02/2017 11:02a [facility], Brendan Adkins [address] J44.9 Hospitalists N.P. I10 I27.81 Office Visit 08/02/2017 10:20a [employer] [facility], [address] I27.20 [facility] FAC J96.01 J96.02 R06.02 Plan of Care Future Appointment(s):07/24/2018 11:30 am - China Tubbs MD at [facility]01/21/2018 - [place] Tubbs MDJ44.9 Chronic obstructive pulmonary disease, unspecifiedFollow up:6 bcgsibH77.33 Obstructive sleep apnea (adult) (pediatric)
[2018-02-18 10:35] VITALS: BP 104/74
--- NOTE | 2018-02-18 15:32 | ED ---
Upper Extremity Pain - HPI Summary HPI Summary: Patient is a 67-year-old who presents emergency department for right elbow swelling times several days. Patient does not recall any injury or falls. Gait elbow is not painful. Patient states that his friend noticed swelling [place] the dog park and he presented to be evaluated. He otherwise denies fever, chills, nausea, vomiting. No history of gout. Symptoms are mild in severity. No current modifying factors. - History of Current Complaint Chief Complaint: EDExtremityUpper Stated Complaint: RIGHT ELBOW PAIN Time Seen by Provider: 02/18/18 10:00 Hx Obtained From: Patient - Allergies/Home Medications Allergies/Adverse Reactions: Allergies Allergy/AdvReac Type Severity Reaction Status Date / Time No Known Allergies Allergy Verified 08/02/17 10:46 PMH/Surg Hx/FS Hx/Imm Hx Previously Healthy: Yes Endocrine/Hematology History: Reports: Hx Diabetes - no meds - just monitors Denies: Hx Anticoagulant Therapy, Hx Blood Disorders, Hx Thyroid Disease Cardiovascular History: Reports: Hx Hypertension - losartan Denies: Hx Peripheral Vascular Disease Respiratory History: Denies: Hx Asthma, Hx Chronic Obstructive Pulmonary Disease (COPD) GI History: Denies: Hx Cirrhosis History: Denies: Hx Acute Renal Failure, Hx Chronic Renal Failure, Hx Renal Disease Musculoskeletal History: Denies: Hx Arthritis, Hx Osteoporosis Sensory History: Reports: Hx Contacts or Glasses Denies: Hx Hearing Aid Opthamlomology History: Reports: Hx Contacts or Glasses Neurological History: Denies: Hx Headaches, Hx Seizures, Hx Transient Ischemic Attacks (TIA) Infectious Disease History: No Infectious Disease History: Denies: Traveled Outside the [place] in Last 30 Days - Family History Known Family History: Positive: None Family History: Noncontributory - Social History Occupation: Retired Lives: Alone Alcohol Use: Rare Hx Substance Use: No Substance Use Type: Reports: None Hx Tobacco Use: Yes Smoking Status (MU): Current Every Day Smoker Type: Cigarettes Amount Used/How Often: 1/2 PPD - "trying to quit" Review of Systems Constitutional: Negative Negative: Fever, Chills Positive: Other - Right elbow swelling Negative: Weakness, Paresthesia, Numbness All Other Systems Reviewed And Are Negative: Yes Physical Exam Triage Information Reviewed: Yes Vital Signs On Initial Exam: Initial Vitals Temp Pulse Resp BP Pulse Ox 97.3 F 73 16 130/73 97 02/18/18 09:46 08/14/18 09:46 02/18/18 09:46 02/18/18 09:46 02/18/18 09:46 Vital Signs Reviewed: Yes Appearance: Positive: Well-Appearing - Pt. sitting on bed in NAD. Talkative. Skin: Positive: Warm, Dry Head/Face: Positive: Normal Head/Face Inspection Eyes: Positive: Normal, EOMI Musculoskeletal: Positive: Other - Moderate effusion noted to the lateral aspect of the right elbow. Area is not red, warm or tender to palpation. No overlying wounds. Full ROM of the elbow without pain or restriction. Neurological: Positive: Normal, CN Intact II-III Psychiatric: Positive: Affect/Mood Appropriate Diagnostics - Vital Signs Vital Signs Temp Pulse Resp BP Pulse Ox 02/18/18 10:34 98.1 F 76 16 104/74 96 02/18/18 10:00 76 92 02/18/18 09:58 78 124/84 92 02/18/18 09:46 97.3 F 73 16 130/73 97 - Laboratory Lab Statement: Any lab studies that have been ordered have been reviewed, and results considered in the medical decision making process. Course/Dx - Course Course Of Treatment: Pt. presenting for painless effusion of elbow. No signs of infection. Afebrile. Suspect olecranon bursitis. Recommend NSAIDS. Buzz wrap placed for comfort. Advised to schedule a f.u with ortho. To return to ER for pain, redness, fever, difficulty moving elbow. Pt. understands and agrees with plan. - Diagnoses Differential Diagnosis/HQI/PQRI: Positive: Arthritis, Bursitis, Contusion, Hematoma, Septic Arthritis, Strain, Sprain Provider Diagnoses: Olecranon bursitis Discharge - Sign-Out/Discharge Documenting (check all that apply): Patient Departure - Discharge Plan Condition: Good Disposition: HOME Patient Education Materials: Elbow Bursitis (ED) Referrals: Juana Butt MD [Medical Doctor] - Triston Redd MD [Primary Care Provider] - Additional Instructions: Call Dr. Butt's office to schedule an appointment with orthopedics Ice and elevate Buzz wrap NSAIDS as directed Return to ER for pain, redness, fever, difficulty bending elbow - Billing Disposition and Condition Condition: GOOD Disposition: Home
== END 2018-02-18 10:34 | disposition home or self-care (01) ==
LOC: ED 09:36
DX: M70.21 Olecranon bursitis, right elbow (principal); Y93.9 Activity, unspecified; I10 Essential (primary) hypertension; F17.210 Nicotine dependence, cigarettes, uncomplicated
CPT/HCPCS: 99282

== ENCOUNTER 2018-03-07 11:40 | Day surgery (SDC) | payer MEDICARE, BC ==
--- NOTE | 2018-03-06 10:59 | HP ---
PREOPERATIVE HISTORY AND PHYSICAL EXAM: DATE OF SURGERY/ADMISSION: 03/07/18 DATE OF OFFICE VISIT/ENCOUNTER: 03/05/18 ATTENDING SURGEON: Carrie Arita MD.* (DICTATED BY FORTINO GARCIA) PROCEDURE: Right wrist carpal tunnel release, right elbow olecranon bursa aspiration. CHIEF COMPLAINT: Numbness and tingling right hand, right olecranon bursitis. HISTORY OF PRESENT ILLNESS: This is a 67-year-old male who complains of numbness and tingling in his bilateral hands, right is worse than left. He feels numbness and tingling in his thumb, index, and middle fingers, not in his small finger. He had a recent nerve conduction study, which showed severe carpal tunnel on the right and moderate on the left. He denies any injury. He is also complaining of a recurrent bursitis at the right olecranon process. He did have it aspirated couple of weeks ago but the bursitis has recurred. He has been wearing a compression pad but the fluid has recollected. He is interested in pursuing surgical intervention for his right carpal tunnel syndrome and also would like to have the right elbow olecranon bursa aspirated at the same time. PAST MEDICAL HISTORY: 1. Hypertension. 2. COPD. 3. Sleep apnea, with CPAP. 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 MEDICATIONS: 1. Albuterol sulfate 1.25 mg/3 mL in nebulizer q.6 hours p.r.n. 2. Aspirin 81 mg daily. 3. BEVESPI AEROSPHERE 9-4.8 mcg/act 2 puffs twice daily. 4. Losartan potassium 50 mg daily. 5. Oxygen 4 L per minute during exertion, 3 L per minute at night with CPAP. 6. Furosemide 20 mg 2 tabs daily. ALLERGIES: No known drug allergies. FAMILY MEDICAL HISTORY: Noncontributory. SOCIAL HISTORY: The patient is retired. He is a former smoker. He quit smoking about 6 months ago. Prior to that he smoked for 30 years half a pack a day. He denies recreational drug use. He does drink alcohol on occasion. REVIEW OF SYSTEMS: Negative for general, cephalic, cardiovascular, respiratory , GI, , other musculoskeletal, integumentary, endocrine, neurologic, and hematologic symptoms. Infectious disease is negative for MRSA, hepatitis C, and HIV. No known anesthesia problems. PHYSICAL EXAMINATION GENERAL: Well-developed, well-nourished, 67-year-old male, in on acute distress. VITAL SIGNS: Height 5 feet 10 inches, weight 216 pounds, pulse rate 80, blood pressure 112/66. HEENT: Normocephalic, atraumatic. Pupils are equal, round, and reactive to light and accommodation. Extraocular movements are intact. NECK: Supple. No palpable lymph nodes. Throat is clear. PULMONARY: Lungs are clear to auscultation bilaterally. No wheezes, rales, or rhonchi. CARDIOVASCULAR: Regular rate and rhythm. S1, S2. No murmurs, rubs, or gallops. No edema. ABDOMEN: Positive bowel sounds, soft, nontender. MUSCULOSKELETAL: On exam of his right hand, he has no visible muscle wasting but he does have some decreased strength in the right thumb. He has decreased sensation at the tips of the index and middle fingers and the thumb. He has negative Tinel's at the wrist. He has good motion in his fingers. On exam of his right elbow, he has very large swollen olecranon bursa. There is no erythema or drainage. He has full motion of his elbow. There is minimal tenderness to palpation. Neurovascular function is intact. NEUROLOGICAL: Alert and oriented x3. Cranial nerves II through XII are intact. Sensation is intact to light touch. IMAGING STUDIES: EMG nerve conduction study showed severe carpal tunnel syndrome on the right. IMPRESSION: Right carpal tunnel syndrome, right elbow olecranon bursitis. PLAN: The patient is scheduled to undergo right wrist carpal tunnel release and right elbow olecranon bursa aspiration with Dr. Arita on 03/07/18. He will return to the office 10 days postop for followup and suture removal. A prescription for Ultracet was e-scribed to the patient's pharmacy for postoperative pain management. FORTINO GARCIA [id number]/CPS #: [id number] MTDD
[~2018-03-07 11:40] MED LIST: Buffered Lidocaine 0.9% SYRIN* 5 ML/SYR SYRINGE INTRADERM ONE
[2018-03-07] MEDS ORDERED: Midazolam* 1 MG/ML 2 ML VIAL (2 MG) ONE (13:08)
[2018-03-07] MEDS ORDERED: Lidocaine 1% INJ* 10 MG/ML 30 ML SDV ONE (13:08)
[2018-03-07] MEDS ORDERED: fentaNYL* 50 MCG/ML 2 ML VIAL (100 MCG VIAL) ONE (13:08)
[2018-03-07] MEDS ORDERED: Propofol* 10 MG/ML 20 ML BTL IV PUSH ONE (14:07)
[2018-03-07] MEDS ORDERED: fentaNYL* 50 MCG/ML 2 ML VIAL (100 MCG VIAL) IV PRN (14:15)
[2018-03-07] MEDS ORDERED: Acetaminophen TAB* 325 MG PO PRN (14:15)
[2018-03-07] MEDS ORDERED: oxyCODONE/Acetamin 5/325 MG* TAB PO PRN (14:15)
[2018-03-07] MEDS ORDERED: Ondansetron INJ* 2 MG/ML VIAL IV PRN (14:15)
[2018-03-07] MEDS ORDERED: Naloxone* 0.4 MG/ML 1 ML VIAL IV PRN (14:15)
[2018-03-07 14:21] VITALS: BP 102/71
--- NOTE | 2018-03-08 03:47 | OP ---
DATE OF OPERATION: 03/07/18 [facility] DATE OF : 50 SURGEON: Carrie Arita MD STREET INSPECTOR: FORTINO Gomez. ANESTHESIA: Local MAC. PRE-OP DIAGNOSES: Right carpal tunnel syndrome and right olecranon bursitis. POST-OP DIAGNOSES: Right carpal tunnel syndrome and right olecranon bursitis. OPERATIVE PROCEDURE: Right elbow aspiration and right carpal tunnel release. ESTIMATED BLOOD LOSS: Zero. TOURNIQUET TIME: About 5 minutes. INDICATIONS FOR PROCEDURE: Stephen is a 67-year-old man who has numbness and tingling in his right hand and nerve conduction study shows severe carpal tunnel syndrome. He also has recurrent olecranon bursitis on the right. He presents for aspiration of the right elbow and and right carpal tunnel release. DESCRIPTION OF PROCEDURE: The patient was brought to the operating room, was given a sedation anesthetic and placed in the supine position on the operating table with a tourniquet around his right forearm. While he was sedated, the elbow was aspirated for about 20 cc of serosanguineous fluid. There is no sign of infection. The puncture site was dressed with a Band-Aid. The skin of his right hand and forearm was prepped and draped in the usual sterile fashion after infiltrating 10 cc of 1% plain lidocaine in the palm of the right hand. The hand and forearm were exsanguinated and the tourniquet elevated to 250 mmHg. A longitudinal incision was made in the palm in line with the ring finger , dissected sharply through the subcutaneous tissue down to the transverse carpal ligament. The ligament was divided sharply with a knife and then more proximally with the scissors. The nerve was dissected free from the surrounding tissue and there was an area of moderate compression at the mid portion of the ligament. The wound was irrigated and the skin edges reapproximated with 4-0 nylon suture. The wound was dressed with Xeroform, 4x4 , Webril, and an Buzz wrap. The patient tolerated the procedure well and was brought to the recovery room in good condition. [id number]/CPS #: [id number] MTDD
== END 2018-03-07 14:43 | disposition home or self-care (01) ==
LOC: OREAST 11:40
PROVIDERS: ATTEND Orthopaedic Surgery
DX: G56.01 Carpal tunnel syndrome, right upper limb (principal); M71.521 Other bursitis, not elsewhere classified, right elbow; I10 Essential (primary) hypertension; J44.9 Chronic obstructive pulmonary disease, unspecified; G47.33 Obstructive sleep apnea (adult) (pediatric); Z87.891 Personal history of nicotine dependence; Z99.81 Dependence on supplemental oxygen; E66.9 Obesity, unspecified
CPT/HCPCS: J2250; J2704; J3010

== ENCOUNTER 2018-05-13 10:35 | Inpatient (IN) | payer MEDICARE, BC ==
--- NOTE | 2018-04-30 16:16 | HP ---
AMENDED REPORT NOW INCLUDES DESIGNATED COSIGNER HISTORY AND PHYSICAL: DATE OF ADMISSION/SURGERY: 05/13/18 DATE OF OFFICE VISIT: 04/30/18 SURGEON: Juana Butt MD * (DICTATED BY FORTINO STEPHENS) PROCEDURE: Right total hip arthroplasty. CHIEF COMPLAINT: Right hip pain. HISTORY OF PRESENT ILLNESS: Mr. Shaffer is a 67-year-old gentleman with complaints of right hip pain secondary to end-stage osteoarthritis. He has failed conservative treatment and elected to proceed with a right total hip arthroplasty. The surgery is scheduled for 05/13/18. PAST MEDICAL HISTORY: Diabetes, hypertension, polycythemia, and COPD. PAST SURGICAL HISTORY: Right carpal tunnel release and tonsillectomy. CURRENT MEDICATIONS: 1. Torsemide 20 mg daily. 2. Losartan potassium 50 mg daily. 3. Aspirin 81 mg daily. 4. Bevespi-Aerosphere 9-4.8 mcg-act 2 puffs twice a day. ALLERGIES: None. FAMILY HISTORY: Coronary artery disease, emphysema, and diabetes. SOCIAL HISTORY: He is a 67-year-old gentleman, lives alone. He is a former smoker. Denies use of drugs. Uses occasional alcohol. REVIEW OF SYSTEMS: A complete 14-point review of systems was reviewed with the patient. It was positive for COPD and diabetes. He denies history of DVT, PE, hepatitis, HIV, or anesthesia problems. PHYSICAL EXAMINATION GENERAL: He is well developed, well nourished, in no acute distress. VITAL SIGNS: He stands 5 feet 10 inches tall, weighs 211 pounds. His blood pressure 116/64, his heart rate 76. HEENT: Normocephalic, atraumatic. NECK: Supple. No palpable lymph nodes. PULMONARY: Lungs are clear to auscultation bilaterally. CARDIO: Regular rate and rhythm. Strong S1, S2. ABDOMEN: Soft, nontender, nondistended. NEUROLOGICAL: He is alert and oriented x3. MUSCULOSKELETAL: Right lower extremity, the skin is intact. There are no open wounds or abrasions. He walks with an antalgic-type gait favoring his right hip. Hip flexion to 90 degrees. He has 20 degrees of external rotation with severe groin hip. He has 2+ dorsalis pedis pulses, intact sensation and his lower extremity muscle group strengths are intact at 5/5. ASSESSMENT AND PLAN: Mr. Shaffer is a 67-year-old gentleman with end-stage osteoarthritis of the right hip. He has failed conservative treatment and elected to proceed with a right total hip arthroplasty. The surgery is scheduled for 05/13/[address] Butt discussed the risks and benefits of the surgery at today's visit and all of his questions were answered. He will follow up with Dr. Butt 2 weeks after the surgery. FORTINO STEPHENS [id number]/[facility] #: [id number] MTDAlex
[~2018-05-13 10:35] MED LIST changes: +Famotidine IV* 10 MG/ML 2 ML (20 mg) IV ONE; +Gabapentin CAP(*) 300 MG PO ONE
--- OUTSIDE RECORDS SUMMARY | 2018-05-13 10:41 | XMS REPORT ---
:1950 External Reference #:[id number] Author Organization [facility] Address [address] [place] [address] Phone [phone] Care Team Providers Name Role Phone Triston Redd MD Primary Care Physician Unavailable Payers Type Date Identification Numbers Payment Provider Subscriber Medicare Primary Policy Number: [id number] Medicare Sherman Shaffer PayID: [id number] [address] [place] [address] Medigap Part B Policy Number: [id number] BS Facets Sherman Shaffer PayID: [id number] [address] [address] [place] [address] Problems Date Description Provider Status Onset: 08/19/2017 Chronic obstructive lung disease Adrienne Villa, N.P. Active Onset: 08/19/2017 Pulmonary hypertension Adrienne Villa, N.P. Active Onset: 08/19/2017 Essential hypertension Adrienne Villa, N.P. Active Onset: 08/19/2017 Tobacco user Adrienne Villa, N.P. Active Onset: 04/14/2018 Localized, primary osteoarthritis of Juana Butt M.D. Active the pelvic region and thigh Onset: 04/14/2018 Localized, primary osteoarthritis Juana Butt M.D. 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 Family History Date Family Member(s) Problem(s) Comments General Diabetes General Heart Disease General Hypertension General Stroke General Cancer General Rheumatoid Arthritis Father Chronic Obstructive Pulmonary Disease (COPD) Mother Diabetes Social History Type Date Description Comments Marital Status Single Lives With Alone Occupation Retired Cigarette Use Former Cigarette Smoker Smoked 1 ppd for 40 years ETOH Use Occasionally consumes alcohol Smoking Patient is a former smoker Quit 2017 Recreational Drug Use Denies Drug Use Daily Caffeine Consumes on average 64oz of soda per day Exercise Type/Frequency Exercises sporadically Allergies, Adverse Reactions, Alerts Date Description Reaction Status Severity Comments 08/19/2017 NKDA active Medications Medication Date Status Form Strength Qnty SIG Indications Ordering Provider Hitesh Charles 04/22 Active Misc -07/15" 1unit 1 rolling M16.11 Juana Wheels/ s walker ht 70 Daquan, Adjustment inches wt 215 M.D. Holes/-07/15" lbs Tramadol 03/05 Active Tablets 37.5-325m 15tab 1 tab by Carrie Hydrochloride g s mouth every Arita, Acetaminophen 4-6 hours as M.D. needed pain Do not use until after surgery Nebulizer 11/14 Active Device 1unit 1 unit J44.9 China s nebulization MD Suly with albuterol every 6 hours and as needed Full Face Mask 10/17 Active Pls provide G47.33 [place] /2018 pt with full MD Suly face mask to fit and necessary pap supplies Oxygen 10/01 Active Misc 1unit please use o2 R09.02 s at 4l/min MD Suly during exertion, and 3L/min at night with cpap. pls provide pt with portable o2 concentrator Bevespi 08/19 Active Aerosol 9-4.8mcg/ 17.7g 2 puffs J44.9 Adrienne S. Aerosphere Act m inhalation Foster, twice daily. N.P. Albuterol 08/19 Active Nebulizer 1.25mg/3M 225ml use nebulizer J44.9 [place] Sulfate L tx inhaled MD Suly every 6hr as needed for shortness of breath Nebulizer 08/19 Active Kit 1 inhalation J44.9 [place] Kit/Tubing/Rocio 2018 every 6 hours MD Suly thpiece for shortness of breath Aspirin Active Tablets DR 81mg 1 by mouth Unknown /0000 every day Losartan 00 Active Tablets 50mg 1 by mouth Unknown Potassium /0000 every day Torsemide Active Tablets 20mg take 2 Unknown /0000 tablets by mouth once daily Ascorbic Acid Hx Tablets 1000mg 1 by mouth Unknown /0000 every day - 11/13 Atorvastatin 00 Hx Tablets 10mg 1 by mouth Unknown Calcium /0000 every day - 11/13 Vital Signs Date Vital Result Comment 04/25/2018 Height 70 inches 5'10" Weight 215.00 lb Heart Rate 78 /min BP Systolic Sitting 116 mmHg BP Diastolic Sitting 64 mmHg Respiratory Rate 16 /min O2 % BldC Oximetry 90 % on Ra BMI (Body Mass Index) 30.8 kg/m2 04/14/2018 Height 70 inches 5'10" Weight 215.25 lb Heart Rate 72 /min BP Systolic 118 mmHg BP Diastolic 70 mmHg Respiratory Rate 20 /min Body Temperature 97.6 F Pain Level 5 BMI (Body Mass Index) 30.9 kg/m2 04/07/2018 Height 70 inches 5'10" Heart Rate 72 /min BP Systolic 138 mmHg BP Diastolic 74 mmHg Body Temperature 97.9 F Pain Level 0 03/17/2018 Height 70 inches 5'10" Heart Rate 74 /min BP Systolic 122 mmHg BP Diastolic 70 mmHg Respiratory Rate 18 /min Body Temperature 97.6 F Pain Level 0 03/05/2018 Height 70 inches 5'10" Weight 216.75 lb Heart Rate 80 /min BP Systolic 112 mmHg BP Diastolic 66 mmHg Respiratory Rate 14 /min Pain Level 1 BMI (Body Mass Index) 31.1 kg/m2 02/20/2018 Height 70 inches 5'10" Weight 214.00 lb Heart Rate 68 /min BP Systolic 118 mmHg BP Diastolic 60 mmHg Respiratory Rate 16 /min Body Temperature 98.0 F Pain Level 0 BMI (Body Mass Index) 30.7 kg/m2 01/21/2018 Height 70 inches 5'10" Weight 209.25 [...] kg/m2 Neck Circumference in inches 17.25 Results Test Date Test Result H/L Range Note Xray 04/14/2018 Hip Right 2 Views And Pelvis 20305 - 38262 <pending> Knee 3 Views RT <pending> Procedures Date CPT Code Description Status 03/07/2018 06616 Carpal Tunnel Release Completed 03/07/2018 12222 Carpal Tunnel Release Completed 03/07/201870396 Inject/Drain Joint/Bursa Intermediate W/O US Completed 03/07/2018 Inject/Drain Joint/Bursa Intermediate W/O US Completed 02/20/2018 39161 Inject/Drain Joint/Bursa Intermediate W/O US Completed 10/17/2017 55212 ECHO Transthoracic, Real-Time 2D With Doppler And Color Completed Flow 10/17/2017 78336 ECHO Transthoracic, Real-Time 2D With Doppler And Color Completed Flow 09/12/2017 72066 Plethysmography Determination Lung Volumes & Per Airway Completed Resist 09/12/2017 80045 Pulmonary Function><Bronchodil Completed 09/04/2017 20892 Polysomnography Sleep Staging 4+ Parameters W/Cpap Completed 08/02/2017 32618 ECHO Transthorasic Realtime 2D W Doppler & Color Flow Completed Hosp Encounters Type Date Location Provider CPT E/M Dx Office Visit 04/25/2018 [facility] [address] Z01.811 11:30a [facility] J44.9 G47.33 R09.02 Office Visit 03/05/2018 2:00p [facility] Carrie Arita 46523 M70.21 Of Hollie Mccall G56.01 Office Visit 02/20/2018 2:30p [facility] Of Carrie Arita 46142 M70.21 CMarycarmen Mccall Office Visit 01/21/2018 11:30a [facility] [place] [address] J44.9 Services [facility] G47.33 Office Visit 11/14/2017 1:45p [facility] [place] [address] J44.9 [facility] G47.33 R09.02 I27.20 Office Visit 10/01/2017 1:45p [facility] [place] [address] J44.9 [facility] [employer] G47.33 I27.20 R09.02 Office Visit 08/19/2017 10:00a [facility] Adrienne Villa 26067 I27.20 [facility] [employer] N.P. F17.201 J44.9 R06.83 Office Visit 08/06/2017 11:10a [facility], [place] [address] J44.9 Hospitalists I10 I27.81 Office Visit 08/06/2017 7:57a [facility] [place] [address] I27.20 [facility] [employer] J44.9 J96.21 Office Visit 08/05/2017 11:03a [facility] [place] [address] J96.21 [facility] J96.22 F17.210 J44.1 I50.9 I27.20 Office Visit 08/05/2017 11:08a [facility], [place] [address] J44.9 Hospitalists I10 I27.81 Office Visit 08/04/2017 11:07a [facility], [place] [address] J44.9 Hospitalists I10 I27.81 Office Visit 08/04/2017 2:35p [facility] [place] [address] I27.20 [facility] FAC J96.01 J96.02 Office Visit 08/03/2017 11:05a [facility], [place] [address] J44.9 Hospitalists I10 I27.81 Office Visit 08/03/2017 12:13p [facility] [place] [address] I27.20 [facility] FAC J96.01 J96.02 Office Visit 08/02/2017 11:02a [facility],pc Brendan Adkins, [address] J44.9 Hospitalists N.P. I10 I27.81 Office Visit 08/02/2017 10:20a [facility] [place] [address] I27.20 [facility] J96.01 J96.02 R06.02 Plan of Care Future Appointment(s):10/27/2018 11:30 am - China Tubbs MD at [facility]06/11/2018 10:15 am - Carrie Arita M.D. at [facility]05/13/2018 3:30 pm - Juana Butt M.D. at [facility]04/30/2018 10:15 am - Juana Butt M.D. at [facility]04/25/2018 - China Tubbs MDZ01.811 Encounter for preprocedural respiratory examinationFollow up:6 npfndqH33.9 Chronic obstructive pulmonary disease, jrpwcofhlhoV26.33 Obstructive sleep apnea (adult ) (pediatric)R09.02 Hypoxemia
--- OUTSIDE RECORDS SUMMARY | 2018-05-13 10:41 | XMS REPORT ---
:1950 External Reference #:[id number] Author Organization [facility] Address [address] [place] [address] Phone [phone] Care Team Providers Name Role Phone Triston Redd MD Primary Care Physician Unavailable Payers Type Date Identification Numbers Payment Provider Subscriber Medicare Primary Policy Number: [id number] Medicare Sherman Shaffer PayID: [id number] [address] [place] [address] Medigap Part B Policy Number: [id number] BS Facets Sherman Shaffer PayID: [id number] [address] [address] [place] [address] Problems Date Description Provider Status Onset: 08/19/2017 Chronic obstructive lung disease Adrienne Villa, N.P. Active Onset: 08/19/2017 Pulmonary hypertension Adrienne Villa, N.P. Active Onset: 08/19/2017 Essential hypertension Adrienne Villa, N.P. Active Onset: 08/19/2017 Tobacco user Adrienne Villa, N.P. Active Onset: 04/14/2018 Localized, primary osteoarthritis Juana Butt M.D. Active Onset: 04/14/2018 Localized, primary osteoarthritis of Juana Butt M.D. Active the pelvic region and thigh Family History Date Family Member(s) Problem(s) Comments [...] Form Strength Qnty SIG Indications Ordering Provider Tramadol 03/05 Active Tablets 37.5-325m 15tab 1 [...] 17.7g 2 puffs J44.9 Adrienne S. Aerosphere /2017 Act m inhalation Foster, twice daily. N.P. Albuterol 08/19 Active Nebulizer 1.25mg/3M 225ml use nebulizer J44.9 [place] Sulfate L tx inhaled MD Suly every 6hr as needed for shortness of breath Nebulizer 08/19 Active Kit 1 inhalation J44.9 [place] Kit/Tubing/Rocio /2018 every 6 hours MD Suly thpiece for shortness of breath Aspirin [address] 81mg 1 by mouth Unknown /0000 every day Losartan Active Tablets 50mg 1 by mouth Unknown Potassium /0000 every day Torsemide Active Tablets 20mg take 2 Unknown /0000 tablets by mouth once daily Ascorbic Acid Hx Tablets 1000mg 1 by mouth Unknown /0000 every day - 11/13 Atorvastatin Hx Tablets 10mg 1 by mouth Unknown Calcium /0000 every day - 11/13 Vital Signs Date Vital Result Comment 04/14/2018 Height 70 inches 5'10" Weight 215.25 [...] Information Procedures Date CPT Code Description Status 03/07/2018 04257 Carpal Tunnel Release Completed 03/07/2018 58812 Carpal Tunnel Release Completed 03/07/2018 Inject/Drain Joint/Bursa Intermediate W/O US Completed 03/07/2018 Inject/Drain Joint/Bursa Intermediate W/O US Completed 02/20/2018 Inject/Drain Joint/Bursa Intermediate W/O US Completed 10/17/2017 78706 ECHO Transthoracic, Real-Time 2D With Doppler And Color Completed Flow 10/17/2017 83208 ECHO Transthoracic, Real-Time 2D With Doppler And Color Completed Flow 09/12/2017 50954 Plethysmography Determination Lung Volumes & Per Airway Completed Resist 09/12/2017 19501 Pulmonary Function><Bronchodil Completed 09/04/2017 09964 Polysomnography Sleep Staging 4+ Parameters W/Cpap Completed 08/02/2017 77738 ECHO Transthorasic Realtime 2D W Doppler & Color Flow Completed Hosp Encounters Type Date Location Provider CPT E/M Dx Office Visit 03/05/2018 [facility] Carrie Arita 81598 M70.21 2:00p Of Hollie Mccall G56.01 Office Visit 02/20/2018 2:30p [facility] Of Carrie Arita 13508 M70.21 Hollie Mccall Office Visit 01/21/2018 11:30a [facility] [place] [address] J44.9 [facility] [employer] G47.33 Office Visit 11/14/2017 1:45p [facility] [place] [address] J44.9 [facility] [employer] G47.33 R09.02 I27.20 Office Visit 10/01/2017 1:45p [facility] [place] [address] J44.9 [facility] [employer] G47.33 I27.20 R09.02 Office Visit 08/19/2017 10:00a [facility] Adrienne Villa 18148 I27.20 [facility] [employer] N.P. F17.201 J44.9 R06.83 Office Visit 08/06/2017 11:10a [facility],[place] [address] J44.9 Hospitalists I10 I27.81 Office Visit 08/06/2017 7:57a [facility] [place] [address] I27.20 [facility] [employer] J44.9 J96.21 Office Visit 08/05/2017 11:08a [facility], [place] [address] J44.9 Hospitalists I10 I27.81 Office Visit 08/05/2017 11:03a [facility] [place] [address] J96.21 Services Of [facility] J96.22 F17.210 J44.1 I50.9 I27.20 Office Visit 08/04/2017 11:07a [facility], [place] [address] J44.9 Hospitalists I10 I27.81 Office Visit 08/04/2017 2:35p [facility], [address] I27.20 [facility] FAC J96.01 J96.02 Office Visit 08/03/2017 11:05a [facility], [place] [address] J44.9 Hospitalists I10 I27.81 Office Visit 08/03/2017 12:13p [facility], [address] I27.20 [facility] FAC J96.01 J96.02 Office Visit 08/02/2017 11:02a [facility], Brendan Adkins [address] J44.9 Hospitalists N.P. I10 I27.81 Office Visit 08/02/2017 10:20a [facility], [address] I27.20 [facility] FAC J96.01 J96.02 R06.02 Plan of Care Future Appointment(s):04/30/2018 10:15 am - Juana Butt M.D. at [facility]06/09/2018 10:00 am - Carrie Arita M.D. at [facility]07/24/2018 11:30 am - China Tubbs MD at [facility]04/14/2018 - Juana Butt M.D.M25.561 Pain in right kneeM25.461 Effusion, right kneeM16.11 Unilateral primary osteoarthritis, right hipFollow up:Follow up: 7-10 days before vkgeeclL64.551 Pain in right hipM17.11 Unilateral primary osteoarthritis, right knee
--- OUTSIDE RECORDS SUMMARY | 2018-05-13 10:41 | XMS REPORT ---
:1950 External Reference #:[id number] Author Organization [facility] Address [address] [place] [address] Phone [phone] Care Team Providers Name Role Phone Triston Redd MD Primary Care Physician Unavailable Payers Type Date Identification Numbers Payment Provider Subscriber Medicare Primary Policy Number: [id number] Medicare Sherman Shaffer PayID: [id number] [address] [place] [address] Medigap Part B Policy Number: [id number] BS Facets Sherman Shaffer PayID: [id number] [address] [address] [place] [address] Problems Date Description Provider Status Onset: 08/19/2017 [...] MD Suly thpiece for shortness of breath Losartan Active Tablets 50mg 1 by mouth Unknown Potassium /0000 every day Torsemide Active Tablets 20mg take 2 Unknown /0000 tablets by mouth once daily Vitamin C Active Unknown /0000 Ascorbic Acid 00/00 Hx Tablets 1000mg 1 by mouth Unknown /0000 every day - 11/13 Aspirin 00/ Hx Tablets DR 81mg 1 by mouth Unknown /0000 every day - 04/29 Atorvastatin 00 Hx Tablets 10mg 1 by mouth Unknown Calcium /0000 every day - 11/13 Vital Signs Date Vital Result Comment 04/30/2018 Height 70 inches 5'10" Weight 211.00 lb Heart Rate 76 /min BP Systolic 116 mmHg BP Diastolic 64 mmHg BMI (Body Mass Index) 30.3 kg/m2 04/25/2018 Height 70 inches 5'10" Weight 215.00 [...] 04/14/2018 Hip Right 2 Views And Pelvis 45416 - 27545 <pending> Knee 3 Views RT <pending> Procedures Date CPT Code Description Status 03/07/2018 44256 Carpal Tunnel Release Completed 03/07/2018 94344 Carpal Tunnel Release Completed 03/07/2018 10076 Inject/Drain Joint/Bursa Intermediate W/O US Completed 03/07/2018 51366 Inject/Drain Joint/Bursa Intermediate W/O US Completed 02/20/2018 99956 Inject/Drain Joint/Bursa Intermediate W/O US Completed 10/17/2017 89031 ECHO Transthoracic, Real-Time 2D With Doppler And Color Completed Flow 10/17/2017 12388 ECHO Transthoracic, Real-Time 2D With Doppler And Color Completed Flow 09/12/2017 75981 Plethysmography Determination Lung Volumes & Per Airway Completed Resist 09/12/2017 32499 Pulmonary Function><Bronchodil Completed 09/04/2017 35492 Polysomnography Sleep Staging 4+ Parameters W/Cpap Completed 08/02/2017 42569 ECHO Transthorasic Realtime 2D W Doppler & Color Flow Completed Hosp Encounters Type Date Location Provider CPT E/M Dx Office Visit 04/25/2018 [facility] [place] [address] Z01.811 11:30a [facility] J44.9 G47.33 R09.02 Office Visit 03/05/2018 2:00p [facility] Services Carrei Arita 05540 M70.21 Of [facility].Samra Mccall G56.01 Office Visit 02/20/2018 2:30p [facility] Of Carrie Arita, 58425 M70.21 Hollie Mccall Office Visit 01/21/2018 11:30a [facility] [place] [address] J44.9 Services Of [place] G47.33 Office Visit 11/14/2017 1:45p [facility] [place] [address] J44.9 Services Of [employer] [place] G47.33 R09.02 I27.20 Office Visit 10/01/2017 1:45p [facility] [place] [address] J44.9 Services Of [employer] G47.33 I27.20 R09.02 Office Visit 08/19/2017 10:00a [facility] Sleep Adrienne Villa 19188 I27.20 Services Of [employer] N.P. F17.201 J44.9 R06.83 Office Visit 08/06/2017 11:10a [facility], [place] [address] J44.9 Hospitalists I10 I27.81 Office Visit 08/06/2017 7:57a [facility] [place] [address] I27.20 Services Of [employer] J44.9 J96.21 Office Visit 08/05/2017 11:03a [facility] [place] [address] J96.21 Services Of [employer] J96.22 F17.210 J44.1 I50.9 I27.20 Office Visit 08/05/2017 11:08a [facility], [place] [address] J44.9 Hospitalists I10 I27.81 Office Visit 08/04/2017 11:07a [facility],[place] [address] J44.9 Hospitalists I10 I27.81 Office Visit 08/04/2017 2:35p [facility] [place] [address] I27.20 [facility] FACC J96.01 J96.02 Office Visit 08/03/2017 11:05a [facility], [place] [address] J44.9 Hospitalists I10 I27.81 Office Visit 08/03/2017 12:13p [facility] [place] [address] I27.20 [facility] J96.01 J96.02 Office Visit 08/02/2017 11:02a [facility], Brendan Adkins, [address] J44.9 Hospitalists N.P. I10 I27.81 Office Visit 08/02/2017 10:20a [facility] [place] [address] I27.20 [facility] J96.01 J96.02 R06.02 Plan of Care Future Appointment(s):05/23/2018 10:15 am - Juana Butt M.D. at [facility]10/27/2018 11:30 am - China Tubbs MD at [facility]06/11/2018 10:15 am - Carrie Arita M.D. at [facility].05/13/2018 3:30 pm - Juana Butt M.D. at [facility] Of M..04/30/2018 - Juana Butt M.D.M16.11 Unilateral primary osteoarthritis, right hipFollow up:Follow up: 2 weeks after jqixpdbQ25.551 Pain in right hipD16.21 Benign neoplasm of long bones of right lower limbReferral:John Figueroa MD, Surgery,OrthopedicFollow up:Follow up: sawyer de la cruz
[2018-05-13] MEDS ORDERED: Gabapentin CAP(*) 300 MG ONE (10:59)
[2018-05-13] MEDS ORDERED: Famotidine IV* 10 MG/ML 2 ML (20 mg) ONE (10:59)
[2018-05-13] MEDS ORDERED: ceFAZolin 2 GM PREMIX in ORs 2 GM/50 ML BAG IVPB ONE (11:00)
[2018-05-13] MEDS ORDERED: Midazolam* 1 MG/ML 5 ML VIAL (5 MG) ONE (11:46)
[2018-05-13] MEDS ORDERED: fentaNYL* 50 MCG/ML 2 ML VIAL (100 MCG VIAL) ONE (11:46)
[2018-05-13 11:50] LABS: INR 1.04 (0.77-1.02)
[2018-05-13] MEDS ORDERED: KETAMINE HCL* 50 MG/ML 10 ML VIAL ONE (13:38)
[2018-05-13] MEDS ORDERED: Midazolam* 1 MG/ML 2 ML VIAL (2 MG) ONE (14:37)
[2018-05-13] MEDS ORDERED: Bupivacaine-MPF SPINAL* 7.5 MG/ML - 2ML AMP ONE (15:23)
[2018-05-13] MEDS ORDERED: Ondansetron INJ* 2 MG/ML VIAL ONE (15:23)
[2018-05-13] MEDS ORDERED: Glycopyrrolate IV* 0.2 MG/ML 1 ML VIAL ONE (15:23)
[2018-05-13] MEDS ORDERED: Propofol* 10 MG/ML 20 ML BTL IV PUSH ONE (15:23)
[2018-05-13] MEDS ORDERED: Ketorolac INJ* 30 MG/ML 1 ML VIAL ONE (15:23)
[2018-05-13] MEDS ORDERED: Lidocaine 2% PF * 5 ML VIAL ONE (15:23)
[2018-05-13] MEDS ORDERED: Dexamethasone IV* 4 MG/ML 1 ML (4 MG) ONE (15:23)
[2018-05-13] MEDS ORDERED: Levalbuterol 0.63MG/3ML NEB* UNIT OF USE INH PRN (15:44)
[2018-05-13] MEDS ORDERED: DiMENhydriNATE IV* 50 MG/ML VIAL IV PUSH PRN (15:44)
[2018-05-13] MEDS ORDERED: Acetaminophen TAB* 325 MG PO PRN ×2 (15:44→16:24)
[2018-05-13] MEDS ORDERED: HYDROmorphone INJ1* 1 MG/ML SYRINGE IV PRN (15:44)
[2018-05-13] MEDS ORDERED: Gabapentin CAP(*) 100 MG PO ONE (15:47)
[2018-05-13] MEDS ORDERED: ROPIVACAINE 5 MG/ML 30 ML BTL (0.5%) ONE (16:07)
[2018-05-13] MEDS ORDERED: oxyCODONE TAB* 5 MG TAB PO PRN (16:24)
[2018-05-13] MEDS ORDERED: oxyCODONE/Acetamin 5/325 MG* TAB PO PRN (16:24)
[2018-05-13] MEDS ORDERED: Bisacodyl SUPP* 10 MG SUPP PR PRN (16:24)
[2018-05-13] MEDS ORDERED: Ondansetron INJ* 2 MG/ML VIAL IV PRN (16:24)
[2018-05-13] MEDS ORDERED: Cyclobenzaprine TAB* 10 MG PO PRN (16:24)
[2018-05-13] MEDS ORDERED: diPHENhydraMINE IV* 50 MG/ML 1 ml VIAL (BENADRYL) IV PRN (16:24)
[2018-05-13] MEDS ORDERED: Morphine VIAL* 4 MG/ML VIAL (1 ml vial) IV PRN (16:24)
[2018-05-13] MEDS ORDERED: Magnesium Hydroxide LIQ* 30 ML UDC PO PRN (16:24)
[2018-05-13] MEDS ORDERED: Gabapentin CAP(*) 100 MG ONE (16:49)
[2018-05-13] MEDS ORDERED: Albuterol HFA INHALER* 8 gm MDI INH PRN (17:16)
--- NOTE | 2018-05-13 17:22 | CONSULT ---
Subjective Date of Service: 05/13/18 Interval History: Pt is a 67 year old male with a PMH DM (diet controlled), HTN, COPD, GREGORIO (on CPAP at night with 3L O2), secondary polycythemia who presented today for elective R total hip arthroplasty [facility] Dr Butt after failing conservative management of his end stage osteoarthritis. 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 Pt was evaluated post operatively in the PACU. Pt is resting comfortably in bed, pleasant and conversant. He reports pain well controlled on current regimen. Denies shortness of breath (on 2L O2), chest pain, palpitations, nausea/vomiting , dizziness, headache, numbness or tingling in lower extremities. Review of Systems - Measurements Intake and Output: Intake and Output Last 24 Hours 05/11/18 05/12/18 05/13/18 05/14/18 06:59 06:59 06:59 06:59 Intake Total 1500 Output Total 225 Balance 1275 Weight 94.801 kg Intake: IV Fluids 1500 LR 1500 Output: Jeffrey 225 - Review of Systems General Comments: I performed a 14 point review of systems. All pertinent positives and negatives are mentioned above. Objective Active Medications: Acetaminophen (Tylenol Tab*) 650 mg PO ONCE PRN PRN Reason: PAIN - MILD Acetaminophen (Tylenol Tab*) 650 mg PO Q8H PRN PRN Reason: PAIN OR TEMPERATURE Albuterol (Ventolin Hfa Inhaler*) 1 puff INH Q6H PRN PRN Reason: SOB/WHEEZING Bisacodyl (Dulcolax Supp*) 10 mg [place] DAILY PRN PRN Reason: constipation Cyclobenzaprine HCl (Flexeril Tab*) 5 mg PO TID PRN PRN Reason: SPASMS Dimenhydrinate (Dramamine Iv*) 12.5 mg IV PUSH ONCE PRN PRN Reason: NAUSEA/VOMITING Diphenhydramine HCl (Benadryl Iv*) 25 mg IV Q6H PRN PRN Reason: itching Docusate Sodium (Colace Cap*) 100 mg PO BID SCOTT Enoxaparin Sodium (Lovenox(*)) 40 mg SUBCUT Q24H SCOTT Famotidine (Pepcid Iv*) 20 mg IV ONCE ONE Stop: 11/06/18 06:01 Last Admin: 05/13/18 11:42 Dose: 20 mg Gabapentin (Neurontin Cap(*)) 300 mg PO ONCE ONE Stop: 05/13/18 06:01 Last Admin: 05/13/18 11:42 Dose: 300 mg Gabapentin (Neurontin Cap(*)) 100 mg PO ONCE ONE Stop: 05/13/18 15:48 Last Admin: 05/13/18 17:15 Dose: 100 mg Hydromorphone HCl (Dilaudid Inj1s*) 0.2 mg IV Q5M PRN PRN Reason: PAIN - SEVERE Lactated Ringer's (Lactated Ringers 1000 Ml Bag*) 1,000 mls @ 125 mls/hr IV PER RATE [facility] Last Admin: 05/13/18 11:40 Dose: 125 mls/hr Cefazolin Sodium/Dextrose (Kefzol 1 Gm In Dextrose Duplex (*)) 1 gm in 50 mls @ 200 mls/hr IVPB Q8H SCOTT Stop: 05/14/18 09:14 Lactated Ringer's (Lactated Ringers 1000 Ml Bag*) 1,000 mls @ 75 mls/hr IV PER RATE SCOTT Lactulose (Lactulose*) 30 ml PO Q6H PRN PRN Reason: constipation Levalbuterol HCl (Xopenex 0.63mg/3ml Neb*) 0.63 mg INH ONCE PRN PRN Reason: SOB/WHEEZING Lidocaine/Sodium Bicarbonate (Buffered Lidocaine 0.9% Syrin*) 0.2 ml INTRADERM ONCE ONE Stop: 05/12/18 13:13 Last Admin: 05/13/18 11:42 Dose: Not Given Magnesium Hydroxide (Milk Of Magnesia Liq*) 30 ml PO BID SCOTT Magnesium Hydroxide (Milk Of Magnesia Liq*) 30 ml PO Q6H PRN PRN Reason: constipation Morphine Sulfate (Morphine Inj ((Syringe))*) 2 mg IV Q2H PRN PRN Reason: PAIN - SEVERE Multivitamins (Theragran Tab*) 1 tab PO DAILY [facility] Non-Formulary Medication (Glycopyrrolate/Formoterol Fum [Bevespi Aerosphere Inhaler]) 2 puff INH BID [facility] Ondansetron HCl (Zofran Inj*) 4 mg IV Q6H PRN PRN Reason: nausea Oxycodone HCl (Roxycodone Tab*) 10 mg PO Q4H PRN PRN Reason: PAIN - SEVERE Oxycodone/Acetaminophen (Percocet 5/325 Tab*) 1 tab PO Q4H PRN PRN Reason: PAIN Oxycodone/Acetaminophen (Percocet 5/325 Tab*) 2 tab PO Q4H PRN PRN Reason: PAIN Torsemide (Demadex*) 40 mg PO QAM SCOTT Warfarin Sodium (Coumadin Tab(*)) 6 mg PO ONCE@1700 ONE; Protocol Stop: 05/13/18 17:01 Vital Signs - 8 hr 05/13/18 05/13/18 05/13/18 11:22 16:21 16:23 Temperature 98.1 F 97.2 F Pulse Rate 82 67 56 Respiratory 16 3 Rate Blood Pressure 142/78 111/71 (mmHg) O2 Sat by Pulse 92 98 97 Oximetry 05/13/18 05/13/18 05/13/18 16:25 16:30 17:00 Temperature Pulse Rate 65 61 58 Respiratory 16 15 15 Rate Blood Pressure 117/90 119/83 128/75 (mmHg) O2 Sat by Pulse 100 98 99 Oximetry 05/13/18 05/13/18 17:01 17:15 Temperature Pulse Rate 61 65 Respiratory 17 21 Rate Blood Pressure 137/79 (mmHg) O2 Sat by Pulse 99 99 Oximetry Oxygen Devices in Use Now: Nasal Cannula Eyes: No Scleral Icterus, PERRLA Ears/Nose/Mouth/Throat: NL Teeth, Lips, Gums, Clear Oropharnyx, Mucous Membranes Moist Neck: NL Appearance and Movements; NL JVP, Trachea Midline Respiratory: Symmetrical Chest Expansion and Respiratory Effort, Clear to Auscultation Cardiovascular: NL Sounds; No Murmurs; No JVD, No Edema, - - Distant heart sounds. No JVD appreciated Abdominal: NL Sounds; No Tenderness; No Distention Extremities: No Edema, No Clubbing, Cyanosis Skin: No Rash or Ulcers, No Nodules or Sclerosis Neurological: Alert and Oriented x 3, NL Sensation, NL Muscle Strength and Tone , - - Able to dorsiflex and plantarflex Assessment/Plan - Billing Assessment: 67 yo male with PMH COPD, GREGORIO, pulm HTN, HTN admitted for elective R total hip arthroplasty Plan By Medical Problem: 1. s/p right total hip arthroplasty: Plan per primary team, ortho. Continue to trend H/H. Pain control and bowel regimen per ortho. Pt will be evaluated by PT. Pt will be anticoagulated with lovenox bridge to coumadin 2. COPD: No wheezing, shortness of breath, or other evidence of acute exacerbation. Post operatively satting 99% on 2L NC. Bevespi is non-formulary, so will have pharmacy autosub appropriate medication for pt to take as inpatient. Will also continue PRN albuterol. 3. GREGORIO: Pt uses CPAP at home with 3L O2 at night. Pt has brought his home machine and should use while admitted along with supplemental O2. 4. Pulmonary HTN secondary to COPD and GREGORIO, Hx RV pressure/volume overload: Follows with Dr. Tubbs as an outpatient. Will restart his torsemide tomorrow to avoid volume overload. No evidence of volume overload on exam: no rales, JVD , ascites, or edema. 5. HTN: Post op SBPs 110s. Will hold home losartan at the moment. Can restart upon discharge. Will restart torsemide tomorrow as above. 5. DM: Diet controlled. Not on home insulin or oral agents. Continue carb controlled diet. VTE PPX: Lovenox bridge to coumadin, per primary team Diet: Carb controlled diet, starting with liquids this evening. Code Status: Full code Admission Status and Rationale: Inpatient. Plan per primary team, ortho.
[2018-05-13] MEDS ORDERED: Warfarin TAB(*) 6 MG PO ONE (19:00)
[2018-05-13] MEDS: Docusate CAP* 100 MG PO SCH (20:47)
[2018-05-13] MEDS: GLYCOPYRROLATE INH SCH (20:48)
[2018-05-13] MEDS: FORMOTEROL FUM INH SCH (20:48)
[2018-05-13] MEDS: Magnesium Hydroxide LIQ* 30 ML UDC PO SCH (20:49)
[2018-05-13] MEDS: ceFAZolin 1 GM in Dextrose (*) 1 GM/50 ML BAG IVPB SCH (21:44)
[2018-05-14] MEDS: ceFAZolin 1 GM in Dextrose (*) 1 GM/50 ML BAG IVPB SCH ×2 (05:30→14:01)
[2018-05-14 05:52] LABS: INR 1.08 (0.77-1.02)
[2018-05-14 06:35] LABS: Hematocrit 31 % (42-52); Hemoglobin 8.9 g/dl (14.0-18.0); Mean Platelet Volume 7.9 fL (7.4-10.4); Platelet Count 185 10^3/ul (150-450)
[2018-05-14 06:40] LABS: EGFR Non-African American 96.4 (>60)
[2018-05-14] MEDS: Docusate CAP* 100 MG PO SCH ×2 (08:36→22:54)
[2018-05-14] MEDS: Magnesium Hydroxide LIQ* 30 ML UDC PO SCH ×2 (08:36→22:54)
[2018-05-14] MEDS: oxyCODONE/Acetamin 5/325 MG* TAB PO PRN (08:37)
[2018-05-14] MEDS: Vitamin THERAPEUTIC TAB PO SCH (08:37)
[2018-05-14] MEDS: Torsemide TAB* 20 MG PO SCH (08:38)
[2018-05-14] MEDS: GLYCOPYRROLATE INH SCH ×2 (08:39→19:18)
[2018-05-14] MEDS: FORMOTEROL FUM INH SCH ×2 (08:39→19:18)
[2018-05-14] MEDS: Enoxaparin(*) 40 MG/0.4 ML SYR SUBCUT SCH (12:06)
--- NOTE | 2018-05-14 12:32 | PN ---
Progress Note - Progress Note Date of Service: 05/14/18 SOAP: Subjective: []Patient seen and examined OOB in chair in the ICU. He feels well with well controlled right hip pain. Denies CP, SOB, dizziness, nausea. Objective: [] General: Well appearing, NAD RLE: Right hip dressing CDI, thigh is soft, DF/PF intact, sensation intact distally, DP2+, cap refill less than two seconds distally Calves supple and nontender without erythema, edema or palpable cords Assessment: []POD 1 sp Right total hip arthroplasty Plan: []WBAT PT/OT hip precautions lovenox, coumadin 8 mg today Discussed with medicine, stable for transfer back to [facility] on tele monitor today Vital Signs Temp 99.2 F 05/14/18 12:32 Pulse 74 05/14/18 11:00 Resp 15 05/14/18 11:00 BP 116/74 05/14/18 11:00 Pulse Ox 94 05/14/18 11:00 Intake & Output 05/13/18 05/14/18 05/14/18 18:59 06:59 18:59 Intake Total 1800 1984 Output Total 225 1950 1500 Balance 1575 34 -1500 Weight 210 lb 15.718 oz 213 lb 13.574 oz Intake: IV Fluids 1500 849 LR 1500 849 IVPB 115 ABX - CEFAZOLIN 115 Oral 300 1020 Output: Urine 1500 Jeffrey 225 1950 Laboratory Last Values Hgb 8.9 g/dl (14.0-18.0) L 05/14/18 05:30 Hct 31 % (42-52) L 05/14/18 05:30 Plt Count 185 10^3/ul (150-450) 05/14/18 05:30 MPV 7.9 fL (7.4-10.4) 05/14/18 05:30 INR (Anticoag Therapy) 1.08 (0.77-1.02) H 05/14/18 05:30 Sodium 136 mmol/L (135-145) 05/14/18 05:30 Potassium 4.6 mmol/L (3.5-5.0) 05/14/18 05:30 Chloride 105 mmol/L (101-111) 05/14/18 05:30 Carbon Dioxide 26 mmol/L (22-32) 05/14/18 05:30 Anion Gap 5 mmol/L (2-11) 05/14/18 05:30 BUN 12 mg/dL (6-24) 05/14/18 05:30 Creatinine 0.80 mg/dL (0.67-1.17) 05/14/18 05:30 Est GFR ( Amer) 116.7 (>60) 05/14/18 05:30 Est GFR (Non-Af Amer) 96.4 (>60) 05/14/18 05:30 BUN/Creatinine Ratio 15.0 (8-20) 05/14/18 05:30 Glucose 147 mg/dL (70-100) H 05/14/18 05:30 POC Glucose (mg/dL) 123 mg/dL (70-100) H 05/13/18 11:32 Calcium 8.6 mg/dL (8.6-10.3) 05/14/18 05:30
--- NOTE | 2018-05-14 16:14 | PN ---
Subjective Date of Service: 05/14/18 Interval History: Patient seen and examined, OOB to chair. States he is feeling well, no SOB, no chest pain, no complaints. Pain well controlled. No acute overnight events. Remains on O2. Objective Active Medications: Acetaminophen (Tylenol Tab*) 650 mg PO Q8H PRN PRN Reason: PAIN OR TEMPERATURE Albuterol (Ventolin Hfa Inhaler*) 1 puff INH Q6H PRN PRN Reason: SOB/WHEEZING Bisacodyl (Dulcolax Supp*) 10 mg [place] DAILY PRN PRN Reason: constipation Cyclobenzaprine HCl (Flexeril Tab*) 5 mg PO TID PRN PRN Reason: SPASMS Diphenhydramine HCl (Benadryl Iv*) 25 mg IV Q6H PRN PRN Reason: itching Docusate Sodium (Colace Cap*) 100 mg PO BID [facility] Last Admin: 05/14/18 08:36 Dose: 100 mg Enoxaparin Sodium (Lovenox(*)) 40 mg SUBCUT Q24H [facility] Last Admin: 05/14/18 12:06 Dose: 40 mg Lactated Ringer's (Lactated Ringers 1000 Ml Bag*) 1,000 mls @ 75 mls/hr IV PER RATE [facility] Last Admin: 05/14/18 07:38 Dose: 75 mls/hr Lactulose (Lactulose*) 30 ml PO Q6H PRN PRN Reason: constipation Magnesium Hydroxide (Milk Of Magnesia Liq*) 30 ml PO BID [facility] Last Admin: 05/14/18 08:36 Dose: 30 ml Magnesium Hydroxide (Milk Of Magnesia Liq*) 30 ml PO Q6H PRN PRN Reason: constipation Morphine Sulfate (Morphine Vial*) 2 mg IV Q2H PRN PRN Reason: PAIN - SEVERE Multivitamins (Theragran Tab*) 1 tab PO DAILY [facility] Last Admin: 05/14/18 08:37 Dose: 1 tab Pto Nf Med* ( Glycopyrrolate/Formoterol Fum [ Bevespi Aerosphere Inhaler] 2 Puff ) 2 puff INH BID [facility] Last Admin: 05/14/18 08:39 Dose: 2 puff Ondansetron HCl (Zofran Inj*) 4 mg IV Q6H PRN PRN Reason: nausea Oxycodone HCl (Roxycodone Tab*) 10 mg PO Q4H PRN PRN Reason: PAIN - SEVERE Oxycodone/Acetaminophen (Percocet 5/325 Tab*) 1 tab PO Q4H PRN PRN Reason: PAIN Last Admin: 05/14/18 08:37 Dose: 1 tab Oxycodone/Acetaminophen (Percocet 5/325 Tab*) 2 tab PO Q4H PRN PRN Reason: PAIN Pharmacy Profile Note (Coumadin Daily Reminder*) 1 note FOLLOW UP 1700 SCOTT Torsemide (Demadex*) 40 mg PO QAM SCOTT Last Admin: 05/14/18 08:38 Dose: 40 mg Warfarin Sodium (Coumadin Tab(*)) 8 mg PO ONCE@1700 ONE; Protocol Stop: 05/14/18 17:01 Vital Signs - 8 hr 05/14/18 05/14/18 05/14/18 08:21 08:37 08:46 Temperature 99.1 F Pulse Rate Respiratory 14 20 Rate Blood Pressure (mmHg) O2 Sat by Pulse Oximetry 05/14/18 05/14/18 05/14/18 09:00 09:01 10:00 Temperature Pulse Rate 72 69 72 Respiratory 14 17 19 Rate Blood Pressure 108/61 116/67 (mmHg) O2 Sat by Pulse 89 91 92 Oximetry 05/14/18 05/14/18 05/14/18 10:01 11:00 12:00 Temperature Pulse Rate 73 74 72 Respiratory 16 19 22 Rate Blood Pressure 116/74 106/66 (mmHg) O2 Sat by Pulse 92 94 96 Oximetry 05/14/18 05/14/18 05/14/18 12:01 12:31 12:32 Temperature 99.2 F Pulse Rate 72 Respiratory 17 23 Rate Blood Pressure (mmHg) O2 Sat by Pulse 96 Oximetry 05/14/18 05/14/18 05/14/18 13:00 13:01 13:57 Temperature Pulse Rate 77 82 Respiratory 19 25 22 Rate Blood Pressure 118/83 (mmHg) O2 Sat by Pulse 92 95 Oximetry 05/14/18 05/14/18 05/14/18 14:00 14:01 14:55 Temperature Pulse Rate 78 75 Respiratory 18 21 15 Rate Blood Pressure 116/69 (mmHg) O2 Sat by Pulse 95 95 Oximetry 05/14/18 05/14/18 05/14/18 15:00 15:50 16:00 Temperature Pulse Rate 76 78 76 Respiratory 15 20 23 Rate Blood Pressure 101/61 (mmHg) O2 Sat by Pulse 96 94 75 Oximetry Oxygen Devices in Use Now: Nasal Cannula, Other - with CPAP at night Appearance: alert, NAD Eyes: No Scleral Icterus, PERRLA Ears/Nose/Mouth/Throat: NL Teeth, Lips, Gums, Mucous Membranes Moist Neck: NL Appearance and Movements; NL JVP, Trachea Midline Respiratory: Symmetrical Chest Expansion and Respiratory Effort, Clear to Auscultation Cardiovascular: NL Sounds; No Murmurs; No JVD, RRR, No Edema Abdominal: NL Sounds; No Tenderness; No Distention Extremities: No Edema, No Clubbing, Cyanosis Skin: No Rash or Ulcers Neurological: Alert and Oriented x 3, NL Sensation Nutrition: Taking PO's Result Diagrams: 05/14/18 05:30 05/14/18 05:30 Microbiology and Other Data: Microbiology 05/13/18 18:33 Nasal Screen MRSA (PCR) - Final Nasal Mrsa Not Detected Assess/Plan/Problems-Billing Assessment: This is a 67 yo male with PMH COPD, GREGORIO, pulm HTN, HTN admitted for elective R total hip arthroplasty with concern for hypoxic respiratory failure post- operatively, in ICU for close observation. Plan By Medical Problem: 1. s/p right total hip arthroplasty: Plan per primary team, ortho. Continue to trend H/H. Pain control and bowel regimen per ortho. Pt will be evaluated by PT. Pt will be anticoagulated with lovenox bridge to coumadin 2. COPD: No wheezing, shortness of breath, or other evidence of acute exacerbation. Post operatively satting 99% on 2L NC. Bevespi is non-formulary, so will have pharmacy autosub appropriate medication for pt to take as inpatient. Will also continue PRN albuterol. 3. GREGORIO: Pt uses CPAP at home with 3L O2 at night. Pt has brought his home machine and should use while admitted along with supplemental O2. 4. Pulmonary HTN secondary to COPD and GREGORIO, Hx RV pressure/volume overload: Follows with Dr. Tubbs as an outpatient. Will restart his torsemide tomorrow to avoid volume overload. No evidence of volume overload on exam: no rales, JVD , ascites, or edema. 5. HTN: Post op SBPs 110s. Will hold home losartan at the moment. Can restart upon discharge. Will restart torsemide tomorrow as above. 5. DM: Diet controlled. Not on home insulin or oral agents. Continue carb controlled diet. VTE PPX: Lovenox bridge to coumadin, per primary team Diet: Carb controlled diet, starting with liquids this evening. Code Status: Full code Admission Status and Rationale: Inpatient. Plan per primary team, ortho. - Patient Problems (1) Status post right hip replacement Status: Acute Code(s): Z96.641 - PRESENCE OF RIGHT ARTIFICIAL HIP JOINT SNOMED Code(s): 040469810 Comment: - POD1, POC as per orthopedics - pain, control, bowel regimen, DVT prophy with lovenox/coumadin bridge - Clear for PT/OT - Hip precautions (2) GREGORIO on CPAP Code(s): G47.33 - OBSTRUCTIVE SLEEP APNEA (ADULT) (PEDIATRIC); Z99.89 - DEPENDENCE ON OTHER ENABLING MACHINES AND DEVICES SNOMED Code(s): 33001192 Comment: - Continue home CPAP with supplemental O2 PRN - Wean O2 as tolerated (3) COPD (chronic obstructive pulmonary disease) Code(s): J44.9 - CHRONIC OBSTRUCTIVE PULMONARY DISEASE, UNSPECIFIED SNOMED Code(s): 72674349 Comment: - Continue nebs and spiriva - Follow siwth Dr. Tubbs as an outpatient - No s/s acute exac (4) Cor pulmonale Code(s): I27.81 - COR PULMONALE (CHRONIC) SNOMED Code(s): 76199380 Comment: - Follows with Dr. Tubbs as an outpatient, likely 2/2 severe COPD - IV lasix DCd, placed back on torsemide today - Does not appear volume overloaded - Stable on tele continue diuresis 40mg IV BID. daily weights, strict io. Fluid restrict 1.8L daily likely will need RHC. May need PDE-5 inhibition, endothelin recepetor antagonists, proastcyclins or CCB. (5) HTN (hypertension) Current Visit: No Status: Acute Code(s): I10 - ESSENTIAL (PRIMARY) HYPERTENSION SNOMED Code(s): 03169114 Comment: losartan 50mg daily. Status and Disposition: Inpatient, may be downgraded from ICU. Dispo per ortho.
[2018-05-14] MEDS ORDERED: Warfarin TAB(*) 4 MG PO ONE (17:00)
[2018-05-14] MEDS: Bisacodyl SUPP* 10 MG SUPP PR SCH (22:54)
[2018-05-15] MEDS: oxyCODONE/Acetamin 5/325 MG* TAB PO PRN ×2 (00:41→08:22)
--- NOTE | 2018-05-15 03:39 | OP ---
DATE OF OPERATION: 05/13/18 - ROOM #349 DATE OF : 50 SURGEON: Juana Butt MD FACILITIES COORDINATOR: FORTINO Esposito. Mr. Guevara did help throughout the procedure with preparation of the leg, wound retraction, manipulation of the hip, and wound closure. ANESTHESIOLOGIST: Dr. Willis. ANESTHESIA: Spinal. PRE-OP DIAGNOSIS: Severe end-stage degenerative osteoarthritis of the right hip joint. POST-OP DIAGNOSIS: Severe end-stage degenerative osteoarthritis of the right hip joint. OPERATIVE PROCEDURE: Right total hip arthroplasty. INDICATIONS: Mr. Shaffer is a 67-year-old gentleman with years of increasingly severe right hip pain. He failed conservative treatment with antiinflammatories, pain medication, and home exercise program. Radiographs showed [id number] end- stage arthritis. Due to continued pain and decreased quality of life, he elected to undergo a right total hip arthroplasty. Informed consent was obtained from the patient. He understood the risks of the surgery included but were not limited to bleeding, infection, damage to nearby structures, continued pain, need for further surgery, intraoperative fracture, nerve palsy, hardware failure or loosening, dislocation, leg length discrepancies, stroke, heart attack, blood clot, and . He wished to proceed. COMPLICATIONS: None. ESTIMATED BLOOD LOSS: 200 cc. SPECIMEN: Femoral head and acetabular reaming sent to Pathology. HARDWARE USED: This is uncemented Milroy total hip arthroplasty hardware. For the cup, a Tritanium cluster hole shell 54E. A single 20-mm cancellous bone screw was used. For the liner, a Trident X3 10-degree polyethylene insert 36E. For the stem, an Accolade II, size 6 with a 127-degree neck. For the head , a 36 -2.5 Biolox delta ceramic V40 femoral neck. INTRAOPERATIVE FINDINGS: Intraoperatively, the patient was noted to have severe end-stage arthritis with complete loss of cartilage in the femoral head and acetabulum. He had extensive osteophyte formation around the acetabulum. DESCRIPTION OF PROCEDURE: Mr. Shaffer is a 67-year-old gentleman, who was identified in the preanesthesia unit. His right lower extremity was marked as the correct operative side. Informed consent was signed and placed in the chart. The patient was taken to the operating room and placed under spinal anesthesia. A Jeffrey catheter was placed. The patient was placed in the left lateral decubitus position on the peg board. All bony prominences were well padded. Right lower extremity was prepped and draped in the usual sterile fashion. Preop time-out was made to correctly identify the patient, side, and site. Appropriate perioperative antibiotics were given within 1 hour of incision. A 12-cm posterior hip incision was made with a 10-blade and carried down through the subcutaneous fat. Lateral fascial layer was incised in line with the skin incision and Charnley retractor was placed. The piriformis and conjoint tendons were identified and elevated off the posterolateral femur using electrocautery. These were tagged with #5 Ethibond. Next, electrocautery was used to make a standard posterolateral capsular flap and this was also tagged with #5 Ethibond. The hip was carefully dislocated. Lesser troch to center of the femoral head measured 58 mm. Oscillating saw was used to make the appropriate femoral neck cut and the head was removed. After appropriate placement of retractors, the acetabulum was well visualized. Long-handle knife was used to sharply remove any remaining labrum from the acetabular rim. The acetabulum was sequentially reamed up to a size 53. 53 reamer had good subchondral bleeding bone bed. 53 trial had excellent fit and stability. Final implant chosen was a Tritanium cluster hole shell 54E. This was impacted into the acetabulum without difficulty. The liner was stable with appropriate anteversion and abduction angle. A single 20-mm screw was placed in the superoposterior quadrant for extra stability. A Trident X3 10-degree liner 36E was chosen as the correct liner. This was impacted into the acetabulum without difficulty. Stability of the liner was checked and rechecked and noted to be stable. Next, attention was turned to preparation of the femoral canal. A canal finder was used to enter the proximal femur. Femur was sequentially broached up to a size 6. Size 6 broach had excellent fit and appropriate anteversion. A 127- neck trial with a 36 +0 head head trial was chosen. Lesser troch to center of the femoral head measured 60 mm. The hip was reduced and taken through range of motion. The hip was stable in all positions. There was good soft tissue tension and appropriate leg lengths. The hip was carefully dislocated. All trials were carefully removed. Final implant chosen was an Accolade II, size 6 with a 127-degree neck. This was impacted into the femoral canal without difficulty. The stem was stable with appropriate anteversion. This stem did sit up 2 more millimeters than the broach; therefore, a Biolox delta ceramic V40 femoral head 36 -2.5 was chosen as the final implant. This was impacted on to the femoral neck. Lesser troch to center of the femoral head measured 59 mm. The hip was reduced and taken through range of motion. The hip was stable in all positions. The hip was copiously irrigated with sterile saline. Previously tagged capsule and tendons were reapproximated to the posterolateral femur through 2 trochanteric drill holes. Lateral fascial layer was closed using interrupted #1 Vicryls. The rest of the incision was closed in a layered fashion using 0 and 2-0 Vicryls. Skin was closed using running 3-0 Monocryl and Dermabond. Sterile Adaptic, 4x4s , and paper tape were used to cover the incision. The patient's anesthesia was reversed without difficulty. He was taken to the PACU in stable condition. Intended weightbearing will be weightbearing as tolerated. Intended DVT prophylaxis will be Coumadin with a Lovenox bridge. [id number]/[facility] #: [id number] LUIS ENRIQUE
[2018-05-15 07:01] LABS: INR 2.55 (0.77-1.02)
[2018-05-15 07:02] LABS: Hematocrit 29 % (42-52); Hemoglobin 9.6 g/dl (14.0-18.0); Mean Platelet Volume 7.7 fL (7.4-10.4); Platelet Count 206 10^3/ul (150-450)
[2018-05-15 08:16] VITALS: BP 104/59
[2018-05-15] MEDS: Bisacodyl SUPP* 10 MG SUPP PR SCH (08:17)
[2018-05-15] MEDS: Docusate CAP* 100 MG PO SCH (08:22)
[2018-05-15] MEDS: Vitamin THERAPEUTIC TAB PO SCH (08:22)
[2018-05-15] MEDS: Torsemide TAB* 20 MG PO SCH (08:22)
[2018-05-15] MEDS: Magnesium Hydroxide LIQ* 30 ML UDC PO SCH (08:22)
[2018-05-15] MEDS: GLYCOPYRROLATE INH SCH (10:07)
[2018-05-15] MEDS: FORMOTEROL FUM INH SCH (10:07)
[2018-05-15] MEDS: Enoxaparin(*) 40 MG/0.4 ML SYR SUBCUT SCH (10:54)
--- NOTE | 2018-05-15 11:03 | PN ---
Progress Note - Progress Note Date of Service: 05/15/18 SOAP: Subjective: []Patient seen and examined at bedside. He met his goals with PT and is ready for DC home. Denies CP, SOB, dizziness, nausea. Objective: []General: Well appearing, NAD RLE: Right hip dressing changed by Dr Butt this morning without complication, dressing remains CDI, thigh is soft, DF/PF intact, sensation intact distally, DP2+, cap refill less than two seconds distally Calves supple and nontender without erythema, edema or palpable cords Assessment: []POD 2 sp Right total hip arthroplasty Plan: []WBAT PT/OT hip precautions lovenox, coumadin 4 mg today DC to home today Vital Signs Temp 98.4 F 05/15/18 07:14 Pulse 69 05/15/18 07:14 Resp 18 05/15/18 10:38 BP 104/59 05/15/18 07:14 Pulse Ox 94 05/15/18 08:00 Intake & Output 05/14/18 05/15/18 05/15/18 18:59 06:59 18:59 Intake Total 1348 600 210 Output Total 2625 450 0 Balance -1277 150 210 Intake: IV Fluids 587 LR 587 IVPB 71 ABX - CEFAZOLIN 63 LR 8 Oral 690 600 210 Output: Urine 2625 450 0 Laboratory Last Values Hgb 9.6 g/dl (14.0-18.0) L 05/15/18 06:40 Hct 29 % (42-52) L 05/15/18 06:40 Plt Count 206 10^3/ul (150-450) 05/15/18 06:40 MPV 7.7 fL (7.4-10.4) 05/15/18 06:40 INR (Anticoag Therapy) 2.55 (0.77-1.02) H 05/15/18 06:40 Sodium 136 mmol/L (135-145) 05/14/18 05:30 Potassium 4.6 mmol/L (3.5-5.0) 05/14/18 05:30 Chloride 105 mmol/L (101-111) 05/14/18 05:30 Carbon Dioxide 26 mmol/L (22-32) 05/14/18 05:30 Anion Gap 5 mmol/L (2-11) 05/14/18 05:30 BUN 12 mg/dL (6-24) 05/14/18 05:30 Creatinine 0.80 mg/dL (0.67-1.17) 05/14/18 05:30 Est GFR ( Amer) 116.7 (>60) 05/14/18 05:30 Est GFR (Non-Af Amer) 96.4 (>60) 05/14/18 05:30 BUN/Creatinine Ratio 15.0 (8-20) 05/14/18 05:30 Glucose 147 mg/dL (70-100) H 05/14/18 05:30 POC Glucose (mg/dL) 123 mg/dL (70-100) H 05/13/18 11:32 Calcium 8.6 mg/dL (8.6-10.3) 05/14/18 05:30
--- NOTE | 2018-05-16 11:15 | DS ---
DISCHARGE SUMMARY: DATE OF ADMISSION: 05/13/18 DATE OF DISCHARGE: 05/15/18 PROVIDER: Dr. Juana Butt.* (DICTATED BY FORTINO PENNINGTON) DATE OF OPERATION: 05/13/18 PREOP DIAGNOSIS: Severe end-stage degenerative osteoarthritis of the right hip joint. OPERATIVE PROCEDURE: Right total hip arthroplasty. HISTORY: Mr. Shaffer is a 67-year-old gentleman with years of increasingly severe right hip pain. He failed conservative management and elected to undergo a right total hip arthroplasty. HOSPITAL COURSE: The patient was admitted to [facility] on . He underwent a right total hip arthroplasty without complication. He recovered briefly in the PACU and was transferred to the ICU in stable condition. ICU was chosen as his location for postoperative day #1 due to a history of pulmonary hypertension secondary to COPD and sleep apnea as well as COPD. There were no acute events overnight and the patient was transferred to the post surgical unit on postoperative day #1 as soon as the bed was available. On exam on postop day #1, right hip dressing was clean, dry, and intact. Thigh was soft. Dorsiflexion and plantar flexion intact. Sensation intact distally. DP pulse 2+. Cap refill less than 2 seconds distally. He was deemed to be stable to transfer back to the short- stay surgical unit on manager monitoring. Postop day #2, he was well-appearing, in no acute distress. Right hip dressing was changed by Dr. Butt this morning without complication. Dressing was clean, dry, and intact. Thigh was soft. Dorsiflexion and plantar flexion intact. Sensation intact distally. DP pulse 2 +. Cap refill less than 2 seconds distally. PHYSICAL EXAMINATION: Vital signs before discharge home: Temperature 98.4, pulse 69, respiratory rate 18, blood pressure 104/59, pulse ox 94. LABORATORY STUDIES: Hemoglobin 9.6, hematocrit 29, platelets 206. INR 2.55. Sodium 136, potassium 4.6. DISCHARGE MEDICATIONS: 1. Losartan 50 mg p.o. q.a.m. 2. Ascorbic acid 1000 mg p.o. q.a.m. 3. Albuterol inhaler one puff inhale q.6 hours p.r.n. 4. Bevespi-Aerosphere inhaler 10.7 g HFA aerosol two puffs inhale b.i.d. 5. Torsemide 40 mg p.o. q.a.m. 6. Acetaminophen 650 mg p.o. q.8 hours p.r.n. 7. Docusate 100 mg p.o. b.i.d./p.r.n. 8. Percocet 5/325 one to two tabs every 4 to 6 hours as needed for pain, max daily dose of 10. 9. Warfarin 2 mg 1 to 3 tabs daily, dose depends on INR draws. DISCHARGE PLAN: The patient will be weightbearing as tolerated. He will follow his hip precautions. He will continue physical therapy and occupational therapy. He may shower on postop day #3. He will be on Coumadin for DVT prophylaxis with INR on 05/15/18 is 2.55. Coumadin dosing starting 05/15/18 is going to be 4 mg daily until 05/18/18. He will thereafter recheck his INR on for further dosing instructions. For pain control, Percocet 5/325 one to two tabs by mouth every 4 to 6 hours as needed for pain, maximum of 10 tabs per day. Discharge medications were sent to [id number]. DISPOSITION: The patient will be discharged to home. FOLLOWUP: Please follow up with Dr. Butt in 10 to 14 days. FORTINO PENNINGTON [id number]/CPS #: [id number] MTDD
== END 2018-05-15 13:36 | disposition home health service (06) | DRG 470 ==
LOC: AA 10:35 → ICU 18:00 → SSU 05-14 20:51
PROVIDERS: ADMIT Orthopaedic Surgery Adult Reconstructive Orthopaedic Surgery; ATTEND Orthopaedic Surgery Adult Reconstructive Orthopaedic Surgery
PROC: 0SR904A Replacement of Right Hip Joint with Ceramic on Polyethylene Synthetic Substitute, Uncemented, Open Approach (ICD-10-PCS; principal; 2018-05-13 13:00)
DX: M16.11 Unilateral primary osteoarthritis, right hip (principal); I27.20 Pulmonary hypertension, unspecified; J44.9 Chronic obstructive pulmonary disease, unspecified; E11.9 Type 2 diabetes mellitus without complications; G47.33 Obstructive sleep apnea (adult) (pediatric); I27.81 Cor pulmonale (chronic); I11.0 Hypertensive heart disease with heart failure; I50.9 Heart failure, unspecified; M25.761 Osteophyte, right knee; Z79.01 Long term (current) use of anticoagulants; Z82.49 Family history of ischemic heart disease and other diseases of the circulatory system; Z83.3 Family history of diabetes mellitus; Z82.5 Family history of asthma and other chronic lower respiratory diseases; Z87.891 Personal history of nicotine dependence; Z72.89 Other problems related to lifestyle; Z82.61 Family history of arthritis; Z82.3 Family history of stroke; Z80.9 Family history of malignant neoplasm, unspecified
CPT/HCPCS: 36415; 72170; 80048; 85014; 85018; 85049; 85610; 87641; 94640; A9270-GY; C1713; C1776; G8978-GP-CJ; G8979-GP-CI; G8987-GO-CK; G8988-GO-CI; J0690; J1100; J1650; J1885; J2250; J2405; J2704; J2795; J3010